=== PATIENT | male | born 1950 | race Caucasian/White ===

== ENCOUNTER 2018-06-25 23:24 | Emergency (ER) | payer OTHER, SELFPAY ==
[2018-06-25 23:44] VITALS: BP 202/99; PULSE 60; RESP 28; TEMP 36.2; O2SAT 95
--- NOTE | 2018-06-25 23:49 | DI.RAD.S_ITS ---
PROCEDURE: XR CHEST 2V INDICATIONS: Shortness of breath TECHNIQUE: 2 views of the chest were acquired. COMPARISON: [facility], , CHEST 1 VIEW, 11/24/2017, 12:35. FINDINGS: Surgical changes and devices: There is a cardiac pacemaker in expected position. Lungs and pleura: Increased pulmonary vascularity suggesting mild CHF. Left basilar opacity may be infiltrate. No pleural effusions or pneumothorax.. Mediastinum: Mediastinal contours are normal. Heart size is mildly increased. Bones and chest wall: No suspicious bony abnormalities. Soft tissues appear unremarkable. IMPRESSION: 1. Mild congestive heart failure. 2. Left base infiltrate may be secondary to superimposed developing pneumonia. Recommend clinical correlation. Dictated by: Eve Shaver M.D. on 06/26/2018 at 8:40 Approved by: Eve Shaver M.D. on 06/26/2018 at 8:41
[2018-06-26 01:50] VITALS: BP 174/92; PULSE 85; RESP 21; O2SAT 95
[2018-06-26 02:49] VITALS: PULSE 60; RESP 20; O2SAT 93
[2018-06-26] MEDS: ALBUTEROL/IPRATROPIUM 3 ML AMPUL INH (02:49)
[2018-06-26] MEDS: methylPREDNISolone 125 MG/2 ML VIAL IV (03:09)
[2018-06-26 03:24] VITALS: BP 166/84; PULSE 60; RESP 16; O2SAT 95
[2018-06-26 03:35] LABS: Lactate (Lactic Acid) 0.7 mmol/L (0.7-2.1)
[2018-06-26 03:39] LABS: Alanine Aminotransferase 56 IU/L (21-72); Albumin 4.4 g/dL (3.5-5.0); Albumin Globulin Ratio 1.3 (1.0-2.8); Alkaline Phosphatase 109 U/L (38-126); Aspartate Aminotransferase 38 IU/L (17-59); BUN Creatinine Ratio 17.5 (6-22); Blood Urea Nitrogen 14 mg/dL (9-20); Calcium 8.4 mg/dL (8.4-10.2); Carbon Dioxide 28 mmol/L (22-32); Chloride 101 mmol/L (98-107); Creatine Kinase 104 U/L (55-170); Estimated Glomerular Filt Rate > 60.0 mL/min (>60); Globulin 3.5 g/dL (1.7-4.1); Glucose 108 mg/dL (80-110); HEMOLYSIS 18 (0-50); Potassium 4.2 mmol/L (3.4-5.1); Sodium 139 mmol/L (137-145); Total Protein 7.9 g/dL (6.3-8.2)
[2018-06-26 03:41] LABS: Add Manual Diff / Slide Review NO; Basophils Percent Auto 0.6 % (0-2); Eosinophils Percent Auto 2.1 % (2-4); Hematocrit 43.1 % (41-53); Hemoglobin 14.1 g/dL (13.5-17.5); Lymphocytes Percent Auto 10.7 % (25-40); Mean Corpuscular HGB Conc 32.6 % (30-36); Mean Corpuscular Hemoglobin 26.7 PG (26-34); Mean Corpuscular Volume 81.7 fL (80-100); Monocytes Percent Auto 8.6 % (3-14); Neutrophils Absolute Auto 6300 /uL (3000-5900); Platelet Count 160 X10^3/uL (150-400); Red Blood Cell Count 5.27 X10^6/uL (4.5-5.9); Red Cell Distribution Width 18.6 % (11.6-14.8); White Blood Cell Count 8.1 X10^3/uL (4.5-11.0)
[2018-06-26 03:51] LABS: Troponin I < 0.012 ng/mL (0.01-0.034)
[2018-06-26 03:54] LABS: CKMB % Relative Index 1.6 % (1.5-5.0); Creatine Kinase MB 1.66 ng/mL (<2.37)
[2018-06-26 03:56] LABS: Procalcitonin < 0.05 ng/mL (<0.5)
[2018-06-26] MEDS: ALBUTEROL HFA PREPACK 1 BOX MISC (04:02)
--- NOTE | 2018-06-26 04:19 | ED_ITS ---
HPI - URI/Sore Throat General Chief Complaint: Upper Respiratory Symptoms Stated Complaint: coughing bad, cant breath well H/A stomach swell Time Seen by Provider: 06/26/18 01:55 Source: patient Mode of arrival: ambulatory Limitations: no limitations History of Present Illness HPI Narrative: Patient is a 68-year-old male with multiple complaints. He is having some the chest pain and shortness of breath ongoing for couple of days. He denies any orthopnea or increasing dyspnea with exertion. Sometimes feels like he can't take a deep breath. Has a productive cough. This is been ongoing for about 4 days. He feels like he has some abdominal distention as well but no vomiting no pain. MD Complaint: cough Onset (ago): day(s) Duration: constant Related Data Home Medications Medication Instructions Recorded Confirmed metoprolol succinate 100 mg PO BID #0 07/13/17 apixaban [Eliquis] 5 mg PO BID #0 07/14/17 [CEFAZOLIN] IV Q8H #0 11/24/17 [MENTHOL LOZENGE] Q2HP PRN #0 11/24/17 acetaminophen 1,000 mg PO TIDP PRN #0 11/24/17 alteplase [Activase] 100 mg IV #0 11/24/17 diltiazem HCl [Cartia XT] 240 mg PO BID #0 11/24/17 hydralazine 25 mg PO TIDCC #0 11/24/17 hydroxyzine pamoate [Vistaril] 25 mg PO Q4HP PRN #0 11/24/17 methocarbamol 750 mg PO Q8HP PRN #0 11/24/17 multivitamin [Multiple Vitamins] 1 tab PO QDAY #0 11/24/17 ondansetron 4 mg SUBLINGUAL Q6HP PRN #0 11/24/17 oxycodone 1 - 1.5 tab PO Q4HP PRN #0 11/24/17 potassium chloride 20 meq PO QDAY #30 11/24/17 rifampin 600 mg PO QDAY #0 11/24/17 sennosides [senna] 2 tab PO HSP PRN #0 11/24/17 tramadol 1 - 2 tab PO Q6HP PRN #0 11/24/17 Previous Rx's Medication Instructions Recorded lisinopril 20 mg PO QDAY #30 tab 10/17/17 levothyroxine 0.088 mg PO QAM #90 tab 10/18/17 doxycycline hyclate 100 mg PO BID #20 cap 06/26/18 prednisone 50 mg PO DAILY #4 tab 06/26/18 Allergies Allergy/AdvReac Type Severity Reaction Status Date / Time vancomycin Allergy Severe BREATHING Verified 06/25/18 23:49 ISSUES apixaban [APIXABAN] Allergy Unknown Verified 06/25/18 23:49 dabigatran etexilate Allergy Unknown Verified 06/25/18 23:49 [DABIGATRAN ETEXILATE] Penicillins Allergy Unknown CHILDHOOD Verified 06/25/18 23:49 rivaroxaban [RIVAROXABAN] Allergy Unknown Verified 06/25/18 23:49 azithromycin [AZITHROMYCIN] AdvReac Intermediate GI and Verified 06/25/18 23:49 myalgia Review of Systems Review of Systems All systems reviewed & are unremarkable except as noted in HPI and below Constitutional Denies chills, Denies fever(s), Denies lethargy and Denies weakness Cardiovascular Denies chest pain, Denies irregular heart rhythm, Denies lightheadedness, Denies palpitations and Denies orthopnea Respiratory Reports as per HPI Gastrointestinal Gastrointestinal: Denies abdominal pain, Denies change in bowel habits, Denies diarrhea, Denies nausea and Denies vomiting Musculoskeletal Denies back pain, Denies muscle weakness, Denies numbness and Denies tingling Integumentary/Breasts Denies pruritus, Denies erythema, Denies rash and Denies wounds Neurologic Denies numbness, Denies tingling and Denies weakness Endocrine Denies palpitations PFSH Medical History Atrial fibrillation (Acute) Hypertension (Acute) Hypothyroid (Acute) Obstructive sleep apnea (Acute) Social History Smoking Status: Current some day smoker Exam Initial Vital Signs Initial Vital Signs: Vital Signs Temperature 97.1 F L 06/25/18 23:44 Pulse Rate 60 06/25/18 23:44 Respiratory Rate 28 H 06/25/18 23:44 Blood Pressure 202/99 H 06/25/18 23:44 Pulse Oximetry 95 06/25/18 23:44 GENERAL: Currently sleeping with his home BiPAP emergency department no acute distress easily arousable and appropriate HEENT: Head atraumatic,EOMI, pupils reactive, face symmetric no JVD, neck is supple CARDIOVASCULAR: Regular rate and rhythm without murmurs, rubs or gallops. RESPIRATORY: Speaks in full sentences no acute respiratory distress wheezing bilaterally ABDOMEN: Soft, nontender. Normoactive bowel sounds all 4 quadrants. No guarding or rebound. EXTREMITIES: Normal range of motion, no clubbing or edema. Neurovascularly intact NEUROLOGICAL: Alert and oriented x4.Normal gait and speech. Cranial nerves II through XII grossly intact. SKIN: Warm, dry, no laceration, no petechiae, no rashes or lesions. Course Orders Ordered: Discontinued Medications Albuterol (Ventolin Hfa Prepack) 1 box MISC SEEINSTR ONE Stop: 06/26/18 04:01 Last Admin: 06/26/18 04:02 Dose: 1 box Albuterol/Ipratropium (Duoneb) 3 ml INH NOW ONE Stop: 06/26/18 02:11 Last Admin: 06/26/18 02:49 Dose: 3 ml Doxycycline Hyclate (Vibramycin) 100 mg PO NOW ONE Stop: 06/26/18 04:57 Last Admin: 06/26/18 05:20 Dose: 100 mg Methylprednisolone (Solu-Medrol 125 Mg Vial) 125 mg IV NOW ONE Stop: 06/26/18 02:11 Last Admin: 06/26/18 03:09 Dose: 125 mg Vital Signs - 8 hr 06/25/18 23:44 06/26/18 01:50 06/26/18 02:49 Temperature 97.1 F L Pulse Rate 60 85 60 Respiratory Rate 28 H 21 20 Blood Pressure 202/99 H Blood Pressure [Left Arm] 174/92 H Pulse Oximetry 95 95 93 06/26/18 03:24 Temperature Pulse Rate 60 Respiratory Rate 16 Blood Pressure Blood Pressure [Left Arm] 166/84 H Pulse Oximetry 95 MDM - URI/Sore Throat Lab Data Attestation: I reviewed the patient's lab results. Result diagrams: 06/26/18 03:05 06/26/18 03:05 Lab Results 06/26/18 06/26/18 06/26/18 Range/Units 03:05 03:05 03:05 WBC 8.1 (4.5-11.0) X10^3/uL RBC 5.27 (4.5-5.9) X10^6/uL Hgb 14.1 (13.5-17.5) g/dL Hct 43.1 (41-53) % MCV 81.7 (80-100) fL MCH 26.7 (26-34) PG MCHC 32.6 (30-36) % RDW 18.6 H (11.6-14.8) % Plt Count 160 (150-400) X10^3/uL Neut % (Auto) 78.0 H (50-75) % Lymph % (Auto) 10.7 L (25-40) % [place] % (Auto) 8.6 (3-14) % Eos % (Auto) 2.1 (2-4) % Baso % (Auto) 0.6 (0-2) % Neut # (Auto) 6300 H (9139-4272) /uL Sodium 139 (137-145) mmol/L Potassium 4.2 (3.4-5.1) mmol/L Chloride 101 (98-107) mmol/L Carbon Dioxide 28 (22-32) mmol/L BUN 14 (9-20) mg/dL Creatinine 0.80 (0.66-1.25) mg/dL Estimated GFR > 60.0 (>60) mL/min BUN/Creatinine Ratio 17.5 (6-22) Glucose 108 (80-110) mg/dL Lactate (0.7-2.1) mmol/L Calcium 8.4 (8.4-10.2) mg/dL Total Bilirubin 1.0 (0.2-1.3) mg/dL AST 38 (17-59) IU/L ALT 56 (21-72) IU/L Alkaline Phosphatase 109 (38-126) U/L Total Creatine Kinase 104 (55-170) U/L CK-MB (CK-2) 1.66 (<2.37) ng/mL CK-MB (CK-2) Rel Index 1.6 (1.5-5.0) % Troponin I < 0.012 (0.01-0.034) ng/mL B-Natriuretic Peptide 169.0 H (<100) Total Protein 7.9 (6.3-8.2) g/dL Albumin 4.4 (3.5-5.0) g/dL Globulin 3.5 (1.7-4.1) g/dL Albumin/Globulin Ratio 1.3 (1.0-2.8) Procalcitonin < 0.05 (<0.5) ng/mL 06/26/18 Range/Units 03:05 WBC (4.5-11.0) X10^3/uL RBC (4.5-5.9) X10^6/uL Hgb (13.5-17.5) g/dL Hct (41-53) % MCV (80-100) fL MCH (26-34) PG MCHC (30-36) % RDW (11.6-14.8) % Plt Count (150-400) X10^3/uL Neut % (Auto) (50-75) % Lymph % (Auto) (25-40) % [place] % (Auto) (3-14) % Eos % (Auto) (2-4) % Baso % (Auto) (0-2) % Neut # (Auto) (1929-3136) /uL Sodium (137-145) mmol/L Potassium (3.4-5.1) mmol/L Chloride (98-107) mmol/L Carbon Dioxide (22-32) mmol/L BUN (9-20) mg/dL Creatinine (0.66-1.25) mg/dL Estimated GFR (>60) mL/min BUN/Creatinine Ratio (6-22) Glucose (80-110) mg/dL Lactate 0.7 (0.7-2.1) mmol/L Calcium (8.4-10.2) mg/dL Total Bilirubin (0.2-1.3) mg/dL AST (17-59) IU/L ALT (21-72) IU/L Alkaline Phosphatase (38-126) U/L Total Creatine Kinase (55-170) U/L CK-MB (CK-2) (<2.37) ng/mL CK-MB (CK-2) Rel Index (1.5-5.0) % Troponin I (0.01-0.034) ng/mL B-Natriuretic Peptide (<100) Total Protein (6.3-8.2) g/dL Albumin (3.5-5.0) g/dL Globulin (1.7-4.1) g/dL Albumin/Globulin Ratio (1.0-2.8) Procalcitonin (<0.5) ng/mL Imaging Data Chest x-ray: Attestation: I personally reviewed and interpreted this imaging study as follows: My impression: Bilateral patchy infiltrate, ICD wires intact ECG Data Attestation: I personally reviewed and interpreted this ECG as follows: Prior ECG tracings: available for review Interpretation: Sinus rhythm rate 60 atrial pacemaker noted no ST changes no T- wave inversions appear interval 240, QTC 259 MDM Narrative Medical decision making narrative: The patient appears non toxic. He improved significantly after albuterol. He has had productive cough possible pneumonia on x-ray. No leukocytosis does not look septic. He overall feels better ready and able to go. Mildly elevated BNP of 169. No prior history of CHF. Discharge Plan Departure Patient Disposition: Home Clinical Impression: Atypical pneumonia Discharge Date/Time: 06/26/18 06:06 Interventions: ED Discharge Assessment Last Done: 06/26/18 06:58 Instructions: Atypical Pneumonia Activity Restrictions/Additional Instructions: *You have been diagnosed with atypical pneumonia *What to do: Rest *Continue to take medications as directed -albuterol 1-2 puffs every 4 hr if needed for shortness of breath or coughing episodes -prednisone 50 mg once a day for 4 days start tomorrow -doxycycline 1 pill twice a day for 10 days *Follow up with your primary care provider in 2-3 days *Return to ER if you should have worsening cough, increasing shortness of breath , worsening chest or any new, worsening or concerning symptoms Prescriptions: New doxycycline hyclate 100 mg capsule 100 mg PO BID Qty: 20 RF: 0 prednisone 50 mg tablet 50 mg PO DAILY Qty: 4 RF: 0 No Action metoprolol succinate 100 MG tablet extended release 24 hr 100 mg PO BID Qty: 0 RF: 0 apixaban [Eliquis] 5 MG tablet 5 mg PO BID Qty: 0 RF: 0 lisinopril 20 MG tablet 20 mg PO QDAY Qty: 30 RF: 11 levothyroxine 88 MCG tablet 0.088 mg PO QAM Qty: 90 RF: 3 potassium chloride 20 MEQ tablet,ER particles/crystals 20 meq PO QDAY Qty: 30 RF: 0 ondansetron 4 MG tablet,disintegrating 4 mg Sublingual Q6HP PRNQty: 0 RF: 0 [CEFAZOLIN] IV Q8H Qty: 0 RF: 0 multivitamin [Multiple Vitamins] 1 EACH tablet 1 tab PO QDAY Qty: 0 RF: 0 rifampin 300 MG capsule 600 mg PO QDAY Qty: 0 RF: 0 sennosides [senna] 8.6 MG tablet 2 tab PO HSP PRNQty: 0 RF: 0 tramadol 50 MG tablet 1 - 2 tab PO Q6HP PRNQty: 0 RF: 0 [MENTHOL LOZENGE] Q2HP PRNQty: 0 RF: 0 hydroxyzine pamoate [Vistaril] 25 MG capsule 25 mg PO Q4HP PRNQty: 0 RF: 0 methocarbamol 750 MG tablet 750 mg PO Q8HP PRNQty: 0 RF: 0 oxycodone 10 MG tablet 1 - 1.5 tab PO Q4HP PRNQty: 0 RF: 0 acetaminophen 500 MG tablet 1,000 mg PO TIDP PRNQty: 0 RF: 0 alteplase [Activase] 100 MG recon soln 100 mg IV Qty: 0 RF: 0 diltiazem HCl [Cartia XT] 240 MG capsule,extended release 24hr 240 mg PO BID Qty: 0 RF: 0 hydralazine 25 MG tablet 25 mg PO TIDCC Qty: 0 RF: 0 Referrals: Gee Boucher MD [Primary Care Provider] -
[2018-06-26] MEDS: DOXYCYCLINE HYCLATE 100 MG TABLET PO (05:20)
[2018-06-26 06:58] VITALS: BP 163/87; PULSE 61; RESP 16; O2SAT 96
== END 2018-06-26 06:06 | disposition home or self-care (01) ==
PROVIDERS: Emergency Provider Emergency Medicine; PCP Internal Medicine Infectious Disease
DX: J18.9 Pneumonia, unspecified organism (principal); R07.89 Other chest pain
CPT/HCPCS: 36415; 36591; 71046; 80053; 82550; 82553; 83605; 83880; 84145; 84484; 85025; 87040; 93005; 94640; 96374; 99283; 99285; J2930

== ENCOUNTER → 2018-11-27 12:31 | Outpatient (CLI) | payer OTHER, MEDICARE, SELFPAY ==
[2018-11-27 14:20] LABS: Alanine Aminotransferase 51 IU/L (21-72); Albumin 4.4 g/dL (3.5-5.0); Albumin Globulin Ratio 1.5 (1.0-2.8); Alkaline Phosphatase 78 U/L (38-126); Aspartate Aminotransferase 33 IU/L (17-59); BUN Creatinine Ratio 21.1 (6-22); Bilirubin Total 1.1 mg/dL (0.2-1.3); Blood Urea Nitrogen 19 mg/dL (9-20); Carbon Dioxide 30 mmol/L (22-32); Chloride 102 mmol/L (98-107); Estimated Glomerular Filt Rate > 60.0 mL/min (>60); Glucose 92 mg/dL (80-110); HEMOLYSIS < 15 (0-50); Potassium 4.3 mmol/L (3.4-5.1); Sodium 140 mmol/L (137-145); Total Protein 7.4 g/dL (6.3-8.2)
== END ==
PROVIDERS: Family Provider Family Medicine; PCP Internal Medicine Infectious Disease; Visit Provider Internal Medicine Cardiovascular Disease
DX: I48.0 Paroxysmal atrial fibrillation (principal)
CPT/HCPCS: 36415; 80053

== ENCOUNTER → 2019-06-01 12:40 | Outpatient (CLI) | payer OTHER, MEDICARE, SELFPAY ==
[2019-06-01 13:21] LABS: Alanine Aminotransferase 41 IU/L (21-72); Albumin 4.5 g/dL (3.5-5.0); Albumin Globulin Ratio 1.4 (1.0-2.8); Alkaline Phosphatase 78 U/L (38-126); Aspartate Aminotransferase 38 IU/L (17-59); BUN Creatinine Ratio 21.1 (6-22); Blood Urea Nitrogen 19 mg/dL (9-20); Calcium 9.2 mg/dL (8.4-10.2); Carbon Dioxide 26 mmol/L (22-32); Chloride 104 mmol/L (98-107); Estimated Glomerular Filt Rate > 60.0 mL/min (>60); Globulin 3.3 g/dL (1.7-4.1); Glucose 123 mg/dL (80-110); HEMOLYSIS < 15 (0-50); Potassium 4.2 mmol/L (3.4-5.1); Sodium 141 mmol/L (137-145); Total Protein 7.8 g/dL (6.3-8.2)
== END ==
PROVIDERS: Family Provider Internal Medicine Infectious Disease; PCP Family Medicine; Visit Provider Internal Medicine Cardiovascular Disease
DX: I49.5 Sick sinus syndrome (principal); I48.0 Paroxysmal atrial fibrillation
CPT/HCPCS: 36415; 80053; 84443

== ENCOUNTER 2019-11-13 01:46 | Observation (INO) | payer OTHER, MEDICARE, SELFPAY ==
[2019-11-13] VITALS (10 sets, daily range): BP systolic 132–199; BP diastolic 97–125; PULSE 78–106; RESP 16–35; TEMP 36.4–36.7; O2SAT 94–99; BMI 40.7
--- NOTE | 2019-11-13 01:59 | DI.RAD.S_ITS ---
PROCEDURE: XR CHEST 1V INDICATIONS: shortness of breath, chest pain TECHNIQUE: One view of the chest was acquired. COMPARISON: [facility], CR, XR CHEST 2V, 06/25/2018, 23:34. FINDINGS: Surgical changes and devices: Left chest wall cardiac device position is unchanged. Lungs and pleura: There is mild pulmonary vascular congestion. Mild pulmonary edema is also seen. Underlying right perihilar infiltrate cannot be excluded. No pleural effusions or pneumothorax. Mediastinum: Mediastinal contours appear normal. Heart size is enlarged. Bones and chest wall: No suspicious bony lesions. Overlying soft tissues appear unremarkable. IMPRESSION: Cardiomegaly and congestion. Cannot rule out small right infrahilar infiltrate. No gross pneumothorax. Dictated by: Tom Duff M.D. on 11/13/2019 at 8:37 Approved by: Tom Duff M.D. on 11/13/2019 at 8:39
[2019-11-13 02:24] LABS: Add Manual Diff / Slide Review NO; Basophils Absolute Auto 100 /uL (0-100); Basophils Percent Auto 0.8 % (0-2); Eosinophils Absolute Auto 200 /uL (0-450); Eosinophils Percent Auto 2.1 % (2-4); Hematocrit 38.9 % (41-53); Hemoglobin 12.4 g/dL (13.5-17.5); INR 1.3 (0.9-1.3); Lymphocytes Absolute Auto 1600 /uL (1100-4500); Lymphocytes Percent Auto 19.5 % (25-40); Mean Corpuscular HGB Conc 31.8 % (30-36); Mean Corpuscular Hemoglobin 26.2 PG (26-34); Mean Corpuscular Volume 82.5 fL (80-100); Monocytes Absolute Auto 600 /uL (0-900); Monocytes Percent Auto 6.9 % (3-14); Neutrophils Absolute Auto 5600 /uL (1500-7000); Neutrophils Percent Auto 70.7 % (50-75); Platelet Count 192 X10^3/uL (150-400); Prothrombin Time 14.4 SECONDS (10.1-12.7); Red Blood Cell Count 4.72 X10^6/uL (4.5-5.9); Red Cell Distribution Width 16.1 % (11.6-14.8)
--- NOTE | 2019-11-13 02:26 | ED.CHESTPAIN ---
HPI - Chest Pain General Chief Complaint: Chest Pain Stated Complaint: sob/chest pain and tightness Time Seen by Provider: 11/13/19 02:23 Source: patient and family Mode of arrival: Family Vehicle Limitations: no limitations History of Present Illness HPI narrative: This is a 69-year-old male comes emergency department with complaint of chest pain and shortness of breath. Patient states he received a call at 9:30pm this evening that was very agitating an upsetting to him. Patient states that he developed chest pressure, on the left side he states he radiate a little bit toward his neck. He felt short of breath which he states he is always little bit short of breath but was increased. He had a little bit headache, states his blood pressure is elevated this evening. He feels dizzy when he bends over although he states he always feels dizzy when he bends over. He denies any fevers, no chills, no cold cough or congestion. He has been mildly nauseated but no vomiting. No issues with bowel movements or urination, he denies any new swelling in his extremities. He has known hypertension, his atrial fibrillation which he states is paroxysmal. No history of IA, no cardiac stents, he had his pacemaker in place. He states he had an ablation and has had multiple cardioversions in the past. States he had a heart catheterization when he had his ablation which is probably 5+ years ago. He does use a BiPAP at night. Patient states that when he gets anxious he will often feel this way but tonight's episode was a little bit more intense and has not resolved. He has had multiple orthopedic surgeries. Related Data Home Medications Medication Instructions Recorded Confirmed Eliquis 5 mg PO BID #0 07/14/17 11/13/19 multivitamin [Multiple Vitamins] 1 tab PO QDAY #0 11/24/17 11/13/19 potassium chloride 20 meq PO QDAY #30 11/24/17 11/13/19 Respironics Dreamstation BIPAP #1 ea 01/29/19 10/24/19 Previous Rx's Medication Instructions Recorded hydroxyzine pamoate 50 mg capsule 50 mg PO BID PRN #60 cap 10/24/19 propranolol 20 mg tablet 20 mg PO BID #60 tab 10/24/19 Allergies Allergy/AdvReac Type Severity Reaction Status Date / Time vancomycin Allergy Severe BREATHING Verified 10/24/19 13:36 ISSUES apixaban [APIXABAN] Allergy Unknown Verified 10/24/19 13:36 dabigatran etexilate Allergy Unknown Verified 10/24/19 13:36 [DABIGATRAN ETEXILATE] Penicillins Allergy Unknown CHILDHOOD Verified 10/24/19 13:36 rivaroxaban [RIVAROXABAN] Allergy Unknown Verified 10/24/19 13:36 azithromycin [AZITHROMYCIN] AdvReac Intermediate GI and Verified 10/24/19 13:36 myalgia Review of Systems Review of Systems ROS Unobtainable: All systems reviewed & are unremarkable except as noted in HPI and below Patient History Medical History (Updated 11/13/19 @ 05:24 by PAMELA Veras) Atrial fibrillation (Chronic) Atrial fibrillation (Acute) Hypertension (Acute) Hypothyroid (Acute) Obstructive sleep apnea (Acute) Pacemaker (Chronic) Sleep apnea (Acute) Surgical History (Updated 11/13/19 @ 05:25 by PAMELA Veras) History of permanent cardiac pacemaker placement (Acute) History of right knee joint replacement (Acute) Family History (Updated 11/13/19 @ 05:26 by PAMELA Veras) Father Abdominal aortic aneurysm Mother Old age Social History household members: spouse Smoking Status: Current some day smoker alcohol intake: current Smoking Status: Current some day smoker alcohol intake frequency: 0-2 drinks per day Substance Use Type: does not use Exam Narrative Exam Narrative: GENERAL: Alert and oriented x three, obese male in mild distress. Patient does appear slightly anxious. No diaphoresis. HEENT: Head normocephalic, atraumatic, EOMI, pupils reactive, face symmetric, moist mucous membranes NECK: Supple, full range of motion CARDIOVASCULAR: Irregularly irregular rate and rhythm without murmurs, rubs or gallops. RESPIRATORY: Breath sounds equal bilaterally, no wheezes rales or rhonchi. No crackles. No tachypnea accessory muscle use. ABDOMEN: Soft, nontender. Normoactive bowel sounds all 4 quadrants. No guarding or rebound, rigidity, no mass : No CVA tenderness EXTREMITIES: Normal range of motion, trace edema bilateral lower extremities. Neurovascularly intact NEUROLOGICAL: Cranial nerves II through XII grossly intact. Moving all extremities SKIN: Warm, dry, no petechiae, no rashes or lesions. Initial Vital Signs Initial Vital Signs: Vital Signs Temperature 97.7 F 11/13/19 01:50 Pulse Rate 106 H 11/13/19 01:50 Respiratory Rate 23 11/13/19 01:50 Blood Pressure 132/105 H 11/13/19 01:50 Pulse Oximetry 99 11/13/19 01:50 Scores HEART Score Heart Score history: Moderately Suspicious Heart Score EKG: Non-Specific repolarization disturbance Heart Score Age: > or = 65 years old Heart Score risk factors: 1-2 risk factors Heart Score troponin: < or = to normal limit Heart Score Total: 5 Course Orders Ordered: ED Orders 11/13/19 EKG-12 Lead Stat 11/13/19 01:59 XR chest 1V Stat 11/13/19 02:11 Complete Blood Count AUTO DIFF Stat Comprehensive Metabolic Panel Stat Lipase Stat Magnesium Stat NT-proBNP (BNP-Adult 18+) Stat Partial Thromboplastin Time Stat Procalcitonin Stat Prothrombin Time INR Stat Troponin & CK Cardiac Panel Stat 11/13/19 04:10 Troponin & CK Cardiac Panel Stat Acetaminophen (Tylenol) 650 mg PO Q6HR PRN PRN Reason: Fever/Mild Pain (1-3) Apixaban (Eliquis) 5 mg PO BID [facility] Chlorthalidone (Hygroton) 25 mg PO DAILY [facility] Hydroxyzine Pamoate (Vistaril) 50 mg PO BID PRN PRN Reason: anxiety Nitroglycerin (Nitrostat) 0.4 mg SL [id number] PRN PRN Reason: Chest Pain Ondansetron HCl (Zofran) 4 mg IV Q8HR PRN PRN Reason: Nausea And Vomiting Propranolol HCl (Inderal) 20 mg PO BID NEERAJ Discontinued Medications Furosemide (Lasix) 40 mg IV NOW ONE Stop: 11/13/19 03:38 Last Admin: 11/13/19 03:55 Dose: 40 mg Documented by: NARENDRA Nitroglycerin (Nitrostat) 0.4 mg SL [id number] PRN PRN Reason: Chest Pain Last Admin: 11/13/19 03:13 Dose: 0.4 mg Documented by: Admin: 11/13/19 02:59 Dose: 0.4 mg Documented by: BASHIR Vital Signs Vital signs: Vital Signs - 8 hr 11/13/19 01:50 11/13/19 02:59 11/13/19 03:10 Temperature 97.7 F Pulse Rate 106 H 96 H Respiratory Rate 23 35 H Blood Pressure 132/105 H 199/125 H Blood Pressure [Left Arm] 184/113 H Pulse Oximetry 99 95 11/13/19 03:13 11/13/19 03:58 Temperature Pulse Rate 79 Respiratory Rate 20 Blood Pressure 173/107 H Blood Pressure [Left Arm] 181/106 H Pulse Oximetry MDM - Chest Pain Lab Data Attestation: I reviewed the patient's lab results. Result diagrams: 11/13/19 02:11 11/13/19 02:11 Labs: Lab Results 11/13/19 11/13/19 11/13/19 Range/Units 02:11 02:11 02:11 WBC 8.0 (4.5-11.0) X10^3/uL RBC 4.72 (4.5-5.9) X10^6/uL Hgb 12.4 L (13.5-17.5) g/dL Hct 38.9 L (41-53) % MCV 82.5 (80-100) fL MCH 26.2 (26-34) PG MCHC 31.8 (30-36) % RDW 16.1 H (11.6-14.8) % Plt Count 192 (150-400) X10^3/uL Neut % (Auto) 70.7 (50-75) % Lymph % (Auto) 19.5 L (25-40) % [place] % (Auto) 6.9 (3-14) % Eos % (Auto) 2.1 (2-4) % Baso % (Auto) 0.8 (0-2) % Neut # (Auto) 5600 (6933-8647) /uL Lymph # (Auto) 1600 (4646-3290) /uL [place] # (Auto) 600 (0-900) /uL Eos # (Auto) 200 (0-450) /uL Baso # (Auto) 100 (0-100) /uL PT 14.4 H (10.1-12.7) SECONDS INR 1.3 (0.9-1.3) APTT 35 (26.4-36.2) SECONDS Sodium (137-145) mmol/L Potassium (3.4-5.1) mmol/L Chloride (98-107) mmol/L Carbon Dioxide (22-32) mmol/L BUN (9-20) mg/dL Creatinine (0.66-1.25) mg/dL Estimated GFR (>60) mL/min BUN/Creatinine Ratio (6-22) Glucose (80-110) mg/dL Calcium (8.4-10.2) mg/dL Magnesium 2.1 (1.6-2.3) mg/dL Total Bilirubin (0.2-1.3) mg/dL AST (17-59) IU/L ALT (<50) IU/L Alkaline Phosphatase (38-126) U/L Total Creatine Kinase 55 (55-170) U/L CK-MB (CK-2) TNP CK-MB (CK-2) Rel Index TNP Troponin I 0.013 (0.01-0.034) ng/mL NT-Pro-B Natriuret Pep (<125) pg/mL Total Protein (6.3-8.2) g/dL Albumin (3.5-5.0) g/dL Globulin (1.7-4.1) g/dL Albumin/Globulin Ratio (1.0-2.8) Lipase (23-300) U/L Procalcitonin (<0.5) ng/mL 11/13/19 11/13/19 11/13/19 Range/Units 02:11 02:11 02:11 WBC (4.5-11.0) X10^3/uL RBC (4.5-5.9) X10^6/uL Hgb (13.5-17.5) g/dL Hct (41-53) % MCV (80-100) fL MCH (26-34) PG MCHC (30-36) % RDW (11.6-14.8) % Plt Count (150-400) X10^3/uL Neut % (Auto) (50-75) % Lymph % (Auto) (25-40) % [place] % (Auto) (3-14) % Eos % (Auto) (2-4) % Baso % (Auto) (0-2) % Neut # (Auto) (4620-1591) /uL Lymph # (Auto) (1418-4380) /uL [place] # (Auto) (0-900) /uL Eos # (Auto) (0-450) /uL Baso # (Auto) (0-100) /uL PT (10.1-12.7) SECONDS INR (0.9-1.3) APTT (26.4-36.2) SECONDS Sodium 140 (137-145) mmol/L Potassium 4.1 (3.4-5.1) mmol/L Chloride 105 (98-107) mmol/L Carbon Dioxide 28 (22-32) mmol/L BUN 24 H (9-20) mg/dL Creatinine 1.07 (0.66-1.25) mg/dL Estimated GFR > 60.0 (>60) mL/min BUN/Creatinine Ratio 22.4 H (6-22) Glucose 128 H (80-110) mg/dL Calcium 8.5 (8.4-10.2) mg/dL Magnesium (1.6-2.3) mg/dL Total Bilirubin 0.6 (0.2-1.3) mg/dL AST 32 (17-59) IU/L ALT 25 (<50) IU/L Alkaline Phosphatase 80 (38-126) U/L Total Creatine Kinase (55-170) U/L CK-MB (CK-2) CK-MB (CK-2) Rel Index Troponin I (0.01-0.034) ng/mL NT-Pro-B Natriuret Pep 572 H (<125) pg/mL Total Protein 7.4 (6.3-8.2) g/dL Albumin 4.1 (3.5-5.0) g/dL Globulin 3.3 (1.7-4.1) g/dL Albumin/Globulin Ratio 1.2 (1.0-2.8) Lipase 130 (23-300) U/L Procalcitonin < 0.05 (<0.5) ng/mL Imaging Data Chest x-ray: Attestation: I personally reviewed and interpreted this imaging study as follows: My Impression: Patient appears to have similar chest x-ray as 06/25/2028 patient does have some increased pulmonary vascularity. Left lung base is difficult to visualize but this may be secondary to cardiomegaly which is present. Pacemaker does appear to be present. ECG Data Attestation: I personally reviewed and interpreted this ECG as follows: Prior ECG tracings: available for review Interpretation: AFib with a rate 82 QRS of 114 and QTC of 447. Patient has a little bit elevation V1 V2 which appears on prior EKG from 06/26/2018. Patient appears have incomplete right bundle-branch block with nonspecific change otherwise. [facility] Narrative Medical decision making narrative: 69-year-old male comes in hypertensive with chest pain and shortness of breath that was brought on by a stressful phone conversation. Patient does not have any acute EKG changes noted, initial troponin is negative inpatient BNP is elevated with possible pulmonary edema on chest x-ray. Discussed with patient he was initially reluctant to even have a 2 hour troponin repeated but he does have multiple risk factors and discussed I would like to keep cardiac observation. His chest pain improved with 2 nitro sublingual as did his blood pressure, although still elevated. I spoke with MARTY Blake and she would like me to discuss with foundation relations manager cardiology, patient does follow with Dr. Ornelas regularly. Spoke with Dr. Robbins, she recommends serial troponins, starting chlorthalidone 25 mg daily and watch patient's blood pressure. She suspects this is more from hypertension. She does not feel strongly at this time the patient needs a stress test or further intervention unless there are issues with his troponin or hypertension. Re-contacted MARTY Blake and updated her on Dr. Robbins is recommendations. Repeat troponin was obtained at the 2 hour kiera and is still negative and patient continues to remain asymptomatic. Discharge Plan Departure Patient Disposition: Admitted as Observation Clinical Impression: Hypertensive urgency Chest pain Qualifiers: Chest pain type: unspecified Qualified Code(s): R07.9 - Chest pain, unspecified Discharge Date/Time: 11/13/19 04:50 Admit Date/Time: 11/13/19 04:02 Admit Provider: Camille Blake
[2019-11-13 02:27] LABS: Creatine Kinase 55 U/L (55-170); Magnesium 2.1 mg/dL (1.6-2.3); PTT Partial Thromboplastin Tim 35 SECONDS (26.4-36.2)
[2019-11-13 02:39] LABS: Troponin I 0.013 ng/mL (0.01-0.034)
[2019-11-13 02:44] LABS: Alanine Aminotransferase 25 IU/L (<50); Albumin 4.1 g/dL (3.5-5.0); Albumin Globulin Ratio 1.2 (1.0-2.8); Alkaline Phosphatase 80 U/L (38-126); Aspartate Aminotransferase 32 IU/L (17-59); BUN Creatinine Ratio 22.4 (6-22); Bilirubin Total 0.6 mg/dL (0.2-1.3); Blood Urea Nitrogen 24 mg/dL (9-20); Calcium 8.5 mg/dL (8.4-10.2); Carbon Dioxide 28 mmol/L (22-32); Chloride 105 mmol/L (98-107); Estimated Glomerular Filt Rate > 60.0 mL/min (>60); Globulin 3.3 g/dL (1.7-4.1); Glucose 128 mg/dL (80-110); HEMOLYSIS 17 (0-50); Lipase 130 U/L (23-300); Potassium 4.1 mmol/L (3.4-5.1); Sodium 140 mmol/L (137-145); Total Protein 7.4 g/dL (6.3-8.2)
[2019-11-13 02:49] LABS: NT-proBNP (BNP-Adult 18+) 572 pg/mL (<125)
[2019-11-13 02:59] LABS: Procalcitonin < 0.05 ng/mL (<0.5)
[2019-11-13] MEDS: NITROGLYCERIN 0.4 MG SL TAB SL ×2 (02:59→03:13)
[2019-11-13] MEDS: FUROSEMIDE 40 MG/4 ML VIAL IV (03:55)
[2019-11-13 04:33] LABS: Cholesterol 193 mg/dL (140-199); Creatine Kinase 56 U/L (55-170); HDL Cholesterol 45 mg/dL (40-60); LDL Cholesterol Calculated 122 mg/dL (<100); Triglycerides 131 mg/dL (35-150)
[2019-11-13 04:45] LABS: Troponin I 0.015 ng/mL (0.01-0.034)
--- NOTE | 2019-11-13 05:18 | PM.HP.1 ---
History of Present Illness History of Present Illness Date Patient Seen: 11/13/19 Time Patient Seen: 04:30 Chief complaint: sob/chest pain and tightness Narrative: Reed Reid is a 69 y.o. male with a history of permanent atrial fibrillation and currently with a pacemaker, hypertension and obstructive sleep apnea, who developed chest pain after having a stressful conversation with a family member. He stated that he had a ?anxiety attack? and then developed chest pain which occurred off and on until he was seen in the emergency room and administered nitroglycerin. He also stated he had nausea and vomiting but denies fever sweats or chills, has had chronic shortness of breath for the past year, denies abdominal pain, dysuria, diarrhea, or constipation. He has a pacemaker and has had multiple ablations prior to the pacemaker placement. He sees Dr. Ornelas at [facility] cardiology. In the emergency department they did consult with on-call flat sorting machine clerk who recommended starting the patient on chlorthalidone and trending his troponins of which the 1st 2 have been normal. They did not recommend having him undergo a stress test, but did want a see him in follow-up outpatient.. Patient History Medical History (Updated 11/13/19 @ 05:24 by PAMELA Veras) Atrial fibrillation (Chronic) Atrial fibrillation (Acute) Hypertension (Acute) Hypothyroid (Acute) Obstructive sleep apnea (Acute) Pacemaker (Chronic) Sleep apnea (Acute) Surgical History (Updated 11/13/19 @ 05:25 by PAMELA Veras) History of permanent cardiac pacemaker placement (Acute) History of right knee joint replacement (Acute) Family & Social History Family History (Updated 11/13/19 @ 05:26 by PAMELA Veras) Father Abdominal aortic aneurysm Mother Old age Safety & Behavioral: Feels Safe in Current Yes Environment Tobacco & Substance use: Smoking Status Current some day smoker 1 cigarette daily alcohol intake frequency 0-2 drinks per day Substance Use Type does not use Meds Home Medications and Allergies Home Medications Medication Instructions Recorded Confirmed Type Eliquis 5 mg PO BID #0 07/14/17 11/13/19 History multivitamin [Multiple Vitamins] 1 tab PO QDAY #0 11/24/17 11/13/19 History potassium chloride 20 meq PO QDAY #30 11/24/17 11/13/19 History Respironics Dreamstation BIPAP #1 ea 01/29/19 10/24/19 History hydroxyzine pamoate 50 mg capsule 50 mg PO BID PRN #60 cap 10/24/19 11/13/19 Rx propranolol 20 mg tablet 20 mg PO BID #60 tab 10/24/19 11/13/19 Rx Allergies Allergy/AdvReac Type Severity Reaction Status Date / Time vancomycin Allergy Severe BREATHING Verified 10/24/19 13:36 ISSUES apixaban [APIXABAN] Allergy Unknown Verified 10/24/19 13:36 dabigatran etexilate Allergy Unknown Verified 10/24/19 13:36 [DABIGATRAN ETEXILATE] Penicillins Allergy Unknown CHILDHOOD Verified 10/24/19 13:36 rivaroxaban [RIVAROXABAN] Allergy Unknown Verified 10/24/19 13:36 azithromycin [AZITHROMYCIN] AdvReac Intermediate GI and Verified 10/24/19 13:36 myalgia Review of Systems Review of Systems ROS: Yes All systems reviewed with the patient and are negative except as otherwise documented Exam Vital Signs (past 8 hours): - 11/13/19 01:50 11/13/19 02:59 11/13/19 03:10 Temperature 97.7 F Pulse Rate 106 H 96 H Respiratory Rate 23 35 H Blood Pressure 132/105 H 199/125 H Blood Pressure [Left Arm] 184/113 H Pulse Oximetry 99 95 11/13/19 03:13 11/13/19 03:58 Temperature Pulse Rate 79 Respiratory Rate 20 Blood Pressure 173/107 H Blood Pressure [Left Arm] 181/106 H Pulse Oximetry Oxygen Delivery Method Room Air Narrative Exam Narrative: General: Alert oriented morbidly obese 69-year-old male appears mildly uncomfortable HEENT: Head is normocephalic atraumatic, oral and nasal mucosa is pink and moist Eyes: No scleral icterus, conjunctiva is clear Neck: neck is supple Respirations: Lung sounds are clear to auscultation bilaterally no wheezes or rhonchi CV: Distant heart sounds no murmurs or rubs, regular rate and rhythm Abdomen: Obese soft and nontender Skin: Pigmented lower extremities Neuro: Alert and oriented x4 with no focal deficits, speech is clear Extremities: Patient is ambulatory Psych: Normal mood and affect Objective Labs Result Diagrams: 11/13/19 02:11 11/13/19 02:11 Labs: Laboratory Results - last 24 hr 11/13/19 11/13/19 11/13/19 02:11 02:11 02:11 WBC 8.0 RBC 4.72 Hgb 12.4 L Hct 38.9 L MCV 82.5 MCH 26.2 MCHC 31.8 RDW 16.1 H Plt Count 192 Neut % (Auto) 70.7 Lymph % (Auto) 19.5 L [place] % (Auto) 6.9 Eos % (Auto) 2.1 Baso % (Auto) 0.8 Neut # (Auto) 5600 Lymph # (Auto) 1600 [place] # (Auto) 600 Eos # (Auto) 200 Baso # (Auto) 100 PT 14.4 H INR 1.3 APTT 35 Sodium Potassium Chloride Carbon Dioxide BUN Creatinine Estimated GFR BUN/Creatinine Ratio Glucose Calcium Magnesium 2.1 Total Bilirubin AST ALT Alkaline Phosphatase Total Creatine Kinase 55 CK-MB (CK-2) TNP CK-MB (CK-2) Rel Index TNP Troponin I 0.013 NT-Pro-B Natriuret Pep Total Protein Albumin Globulin Albumin/Globulin Ratio Triglycerides Cholesterol LDL Cholesterol, Calc HDL Cholesterol Lipase Procalcitonin 11/13/19 11/13/19 11/13/19 02:11 02:11 02:11 WBC RBC Hgb Hct MCV MCH MCHC RDW Plt Count Neut % (Auto) Lymph % (Auto) [place] % (Auto) Eos % (Auto) Baso % (Auto) Neut # (Auto) Lymph # (Auto) [place] # (Auto) Eos # (Auto) Baso # (Auto) PT INR APTT Sodium 140 Potassium 4.1 Chloride 105 Carbon Dioxide 28 BUN 24 H Creatinine 1.07 Estimated GFR > 60.0 BUN/Creatinine Ratio 22.4 H Glucose 128 H Calcium 8.5 Magnesium Total Bilirubin 0.6 AST 32 ALT 25 Alkaline Phosphatase 80 Total Creatine Kinase CK-MB (CK-2) CK-MB (CK-2) Rel Index Troponin I NT-Pro-B Natriuret Pep 572 H Total Protein 7.4 Albumin 4.1 Globulin 3.3 Albumin/Globulin Ratio 1.2 Triglycerides Cholesterol LDL Cholesterol, Calc HDL Cholesterol Lipase 130 Procalcitonin < 0.05 11/13/19 11/13/19 04:10 04:10 WBC RBC Hgb Hct MCV MCH MCHC RDW Plt Count Neut % (Auto) Lymph % (Auto) [place] % (Auto) Eos % (Auto) Baso % (Auto) Neut # (Auto) Lymph # (Auto) [place] # (Auto) Eos # (Auto) Baso # (Auto) PT INR APTT Sodium Potassium Chloride Carbon Dioxide BUN Creatinine Estimated GFR BUN/Creatinine Ratio Glucose Calcium Magnesium Total Bilirubin AST ALT Alkaline Phosphatase Total Creatine Kinase 56 CK-MB (CK-2) TNP CK-MB (CK-2) Rel Index TNP Troponin I 0.015 NT-Pro-B Natriuret Pep Total Protein Albumin Globulin Albumin/Globulin Ratio Triglycerides 131 Cholesterol 193 LDL Cholesterol, Calc 122 H HDL Cholesterol 45 Lipase Procalcitonin Assessment & Plan Assessment & Plan narrative: Ochoa Reid will be placed into observation and initiated on a new blood pressure medication recommended by Cardiology. 1. Chest pain, likely secondary to stress and hypertensive urgency: acute, present on admission - CHADS Vasc score: 3 - patient was given Lasix in the ED and his blood pressure dropped down to 166/over 109 - patient will be initiated on chlorthalidone 25 mg daily in the morning - patient will continue home dose of propanolol 20 mg p.o. b.i.d. - 1st 2 troponins were negative, 3rd 6 hour troponin will be at 10:00 a.m. - I have requested Cardiology to consult with the patient in the morning 2. Atrial fibrillation with a pacemaker, chronic, stable, present on admission - patient will continue home dose of apixaban 5 mg p.o. b.i.d. 3. Anxiety, chronic, present on admission - patient takes hydroxyzine 50 mg p.o. b.i.d. as needed for anxiety Patient is placed into observation as his stay is not likely to exceed 2 midnights. FEN: Normal saline lock, low sodium diet, BMP 11/13 am if still present VTE: Bilateral SCDs, continue patient's anticoagulation on apixaban Dispo: Probable discharge to home Code status: Full code Scores CHADS-VASc Congestive heart failure: no Hypertension: yes Age 75 years or older: no Diabetes mellitus: no Stroke, TIA, or TE: no Vascular disease: yes Age 65 to 74 years: yes Sex category (female): Male CHADS-VASc Score: 3 Quality VTE Deep Vein Thrombosis/Pulmonary Embolism Present on Admission: No
--- NOTE | 2019-11-13 06:18 | PC.NURSE ---
Admitted to room 222, observation for C/O CP. Pain level upon admit now 1-2 per pain scale. Very dyspneic with exertion when he was ambulating to the BR & back to bed. Instructed to used urinal & stand @ bedside, using CPAP from home. RA sat. 95-97% encouraged to call RN if he's having any pain. Call light within reached & enc, not to get OOB without any assistance. Reported occasionally I get dizzy . Bed alarm activated, will cont. POC & monitor.
[2019-11-13] MEDS: ACETAMINOPHEN 325 MG TABLET 650 MG PO (07:23)
--- NOTE | 2019-11-13 07:25 | PC.NURSE ---
C/O MANRIQUE 650 mg. PO Tylenol admin.
[2019-11-13] MEDS: APIXABAN 5 MG TABLET PO (08:40)
[2019-11-13] MEDS: PROPRANOLOL 10 MG TABLET 20 MG PO (08:40)
[2019-11-13] MEDS: CHLORTHALIDONE 25 MG TABLET PO (08:40)
--- NOTE | 2019-11-13 09:19 | CM.DANOTE ---
DCP Assessment: EMR reviewed: Patient is a 69 yr old male who was admitted for Hypertensive emergency under OBS status. Patients PCP is Dr Masters. CM/RN met with patient at the bedside and explained role. Patient was alert and oriented x3 at time of CM visit. Patient currently lives with his Ely in a single level home. Patient states he is Independent with all ADLs and Drives at baseline. Patient owns a cane but states he does not it. Patient states his breathing is back to what it usually is. when asked about his chest pain stated he is feeling better but still has a little pressure. patient has a consult with cardiology today pending I: [employer] and medicare Plan: D/C home with his Ely when medically stable. No identified D/C planning needs noted at this time. Cm department will follow to assist with any new D/C planning needs that may arise. Thi Stanford RN Cardiac Enzymes 11/13/19 11/13/19 11/13/19 Range/Units 02:11 02:11 04:10 AST 32 (17-59) IU/L CK-MB (CK-2) TNP TNP Troponin I 0.013 0.015 (0.01-0.034) ng/mL Coagulation 11/13/19 Range/Units 02:11 PT 14.4 H (10.1-12.7) SECONDS APTT 35 (26.4-36.2) SECONDS Lipids 11/13/19 Range/Units 04:10 Triglycerides 131 (35-150) mg/dL Cholesterol 193 (140-199) mg/dL HDL Cholesterol 45 (40-60) mg/dL CBC 11/13/19 Range/Units 02:11 WBC 8.0 (4.5-11.0) X10^3/uL RBC 4.72 (4.5-5.9) X10^6/uL Hgb 12.4 L (13.5-17.5) g/dL Hct 38.9 L (41-53) % Plt Count 192 (150-400) X10^3/uL Neut # (Auto) 5600 (3373-8099) /uL Lymph # (Auto) 1600 (2787-1281) /uL [place] # (Auto) 600 (0-900) /uL Eos # (Auto) 200 (0-450) /uL Baso # (Auto) 100 (0-100) /uL Comprehensive Metabolic Panel 11/13/19 Range/Units 02:11 Sodium 140 (137-145) mmol/L Potassium 4.1 (3.4-5.1) mmol/L Chloride 105 (98-107) mmol/L Carbon Dioxide 28 (22-32) mmol/L BUN 24 H (9-20) mg/dL Creatinine 1.07 (0.66-1.25) mg/dL Glucose 128 H (80-110) mg/dL Calcium 8.5 (8.4-10.2) mg/dL AST 32 (17-59) IU/L ALT 25 (<50) IU/L Alkaline Phosphatase 80 (38-126) U/L Total Protein 7.4 (6.3-8.2) g/dL Albumin 4.1 (3.5-5.0) g/dL Intake and Output 11/12/19 11/13/19 11/13/19 23:59 07:59 15:59 Intake Total 150 / 150 Output Total 625 / 625 Balance -475 / -475 Intake: Oral 150 / 150 Output: Urine 625 / 625 Other: # Unmeasured Voids 1 1 Weight 121.5 kg Patient Weight 11/13/19 23:59 Weight 121.5 kg Discharge Planning/Care Management CM Discharge Assessment Start: 11/13/19 09:18 Freq: Status: Active Protocol: Document 11/13/19 09:18 HS (Rec: 11/13/19 09:19 [id number]) Discharge Planning Assessment Assigned [employer] Operator Thi Stanford RN DPOA/Assigned Designee Name Ely Reid (spouse) Contact Information [phone] Advance Directives? Yes Advance Directives on File Yes: [facility] Medical History Provided By Patient,Medical Record Has Patient been admitted in last 30 No days? Prior Living Arrangements House Household Members spouse Type of transporation used prior to Drives own vehicle admit Willing to Return to Facility? No Independent with ADL's Yes Is patient alert and oriented? Yes Caregiver for Another No DME Already Rented / Owned Cane Comment has it at home but doesnt use it Barriers to Discharge No Discharge Plan Home Referrals Initiated None needed Whiteboard Updated in Patient Room with Yes name and ext. # of [employer] Operator Review Status In Process Next Review Type Continued Stay Review
[2019-11-13 10:52] LABS: Troponin I 0.012 ng/mL (0.01-0.034)
--- NOTE | 2019-11-13 11:48 | PC.NURSE ---
Assess- Patient denies chest pain this shift thus far. He does state if he bends over his chest pain continues. aware of this and states to get an EKG if chest pain does get severe. Patient may be discharged home late today if his troponins are wnl.
--- NOTE | 2019-11-13 11:56 | P.DS_ITS ---
History of Present Illness History of Present Illness Chief complaint: sob/chest pain and tightness Narrative: Reed Reid is a 69 y.o. male with a history of permanent atrial fibrillation and currently with a pacemaker, hypertension and obstructive sleep apnea, who developed chest pain after having a stressful conversation with a family member. He stated that he had a ?anxiety attack? and then developed chest pain which occurred off and on until he was seen in the emergency room and administered nitroglycerin. He also stated he had nausea and vomiting but denies fever sweats or chills, has had chronic shortness of breath for the past year, denies abdominal pain, dysuria, diarrhea, or constipation. He has a pacemaker and has had multiple ablations prior to the pacemaker placement. He sees Dr. Ornelas at [facility] cardiology. In the emergency department they did consult with on-call room attendant who recommended starting the patient on chlorthalidone and trending his troponins of which the 1st 2 have been normal. They did not recommend having him undergo a stress test, but did want a see him in follow-up outpatient.. Discharge Providers Provider Date of admission: 11/13/19 04:02 Discharge Date: 11/13/19 Primary care physician: Chintan Masters MD Consults: 11/13/19 04:08 Consult to Cardiology Routine Comment: Consulting Provider: Lianna Robbins Reason for consultation: chest pain hypertensive urgency Has provider been notified: Yes Discharge provider: Stephane Mckee MD Summary Hospital Course Discharge Diagnosis: 1. Acute chest pain 2. Severe hypertension 3. Acute anxiety 4. Chronic atrial fibrillator 5. Headache due to nitroglycerin Hospital Course: Patient presented with complaints of acute anxiety and chest pain. EKG without ischemic changes. He had serial negative troponin x3. The chest pain has been constant and not affected by exertion. Patient is low risk for discharge to follow-up with his room attendant Dr. Ornelas. We did note persistently elevated moderate to severe hypertension. Patient tense to play around with his medications and recent had reduced his propranolol. He has been on various antihypertensives in the past and prone to side effects. We started him on chlorthalidone 25 mg daily. Advised him to take other medications as has been directed. He is on potassium replacement but advised to have a lecture lyandrew rechecked in 1-2 weeks after starting on diuretic therapy. He did developed moderate to severe headache due to nitroglycerin which was treated with Tylenol and oxycodone. Status at Discharge Cognitive/behavioral status at discharge: oriented Functional status at discharge: independent ambulation Overall status at discharge: patient is back to baseline Time Spent with Patient Time spent: Less than 30 minutes Exam Vital Signs (past 8 hours): - 11/13/19 03:58 11/13/19 05:03 11/13/19 05:24 Temperature 97.5 F L 97.5 F L Pulse Rate 79 84 84 Respiratory Rate 20 22 22 Blood Pressure 166/109 H Blood Pressure [Left Arm] 181/106 H Pulse Oximetry 95 97 11/13/19 08:00 Temperature 98.1 F Pulse Rate 84 Respiratory Rate 16 Blood Pressure 169/97 H Blood Pressure [Left Arm] Pulse Oximetry 95 Oxygen Delivery Method Room Air Oxygen Flow Rate 0 Objective Labs Result Diagrams: 11/13/19 02:11 11/13/19 02:11 Labs: Laboratory Results - last 24 hr 11/13/19 11/13/19 11/13/19 02:11 02:11 02:11 WBC 8.0 RBC 4.72 Hgb 12.4 L Hct 38.9 L MCV 82.5 MCH 26.2 MCHC 31.8 RDW 16.1 H Plt Count 192 Neut % (Auto) 70.7 Lymph % (Auto) 19.5 L [place] % (Auto) 6.9 Eos % (Auto) 2.1 Baso % (Auto) 0.8 Neut # (Auto) 5600 Lymph # (Auto) 1600 [place] # (Auto) 600 Eos # (Auto) 200 Baso # (Auto) 100 PT 14.4 H INR 1.3 APTT 35 Sodium Potassium Chloride Carbon Dioxide BUN Creatinine Estimated GFR BUN/Creatinine Ratio Glucose Calcium Magnesium 2.1 Total Bilirubin AST ALT Alkaline Phosphatase Total Creatine Kinase 55 CK-MB (CK-2) TNP CK-MB (CK-2) Rel Index TNP Troponin I 0.013 NT-Pro-B Natriuret Pep Total Protein Albumin Globulin Albumin/Globulin Ratio Triglycerides Cholesterol LDL Cholesterol, Calc HDL Cholesterol Lipase Procalcitonin 11/13/19 11/13/19 11/13/19 02:11 02:11 02:11 WBC RBC Hgb Hct MCV MCH MCHC RDW Plt Count Neut % (Auto) Lymph % (Auto) [place] % (Auto) Eos % (Auto) Baso % (Auto) Neut # (Auto) Lymph # (Auto) [place] # (Auto) Eos # (Auto) Baso # (Auto) PT INR APTT Sodium 140 Potassium 4.1 Chloride 105 Carbon Dioxide 28 BUN 24 H Creatinine 1.07 Estimated GFR > 60.0 BUN/Creatinine Ratio 22.4 H Glucose 128 H Calcium 8.5 Magnesium Total Bilirubin 0.6 AST 32 ALT 25 Alkaline Phosphatase 80 Total Creatine Kinase CK-MB (CK-2) CK-MB (CK-2) Rel Index Troponin I NT-Pro-B Natriuret Pep 572 H Total Protein 7.4 Albumin 4.1 Globulin 3.3 Albumin/Globulin Ratio 1.2 Triglycerides Cholesterol LDL Cholesterol, Calc HDL Cholesterol Lipase 130 Procalcitonin < 0.05 11/13/19 11/13/19 11/13/19 04:10 04:10 10:13 WBC RBC Hgb Hct MCV MCH MCHC RDW Plt Count Neut % (Auto) Lymph % (Auto) [place] % (Auto) Eos % (Auto) Baso % (Auto) Neut # (Auto) Lymph # (Auto) [place] # (Auto) Eos # (Auto) Baso # (Auto) PT INR APTT Sodium Potassium Chloride Carbon Dioxide BUN Creatinine Estimated GFR BUN/Creatinine Ratio Glucose Calcium Magnesium Total Bilirubin AST ALT Alkaline Phosphatase Total Creatine Kinase 56 CK-MB (CK-2) TNP CK-MB (CK-2) Rel Index TNP Troponin I 0.015 0.012 NT-Pro-B Natriuret Pep Total Protein Albumin Globulin Albumin/Globulin Ratio Triglycerides 131 Cholesterol 193 LDL Cholesterol, Calc 122 H HDL Cholesterol 45 Lipase Procalcitonin Discharge Plan Discharge Plan Patient Disposition: Home Discharge comment: You were admitted for evaluation of chest pain. Your cardiac enzymes are normal. We started you on chlorthalidone for BP control. Have electrolytes checked in 1 to 2 weeks and follow up with Dr Ornelas for cardiology. Discharge orders & Medications Prescriptions: New chlorthalidone 25 mg Tablet 25 mg PO DAILY Qty: 30 RF: 0 Continued Eliquis 5 MG tablet 5 mg PO BID Qty: 0 RF: 0 potassium chloride 20 MEQ tablet,ER particles/crystals 20 meq PO QDAY Qty: 30 RF: 0 multivitamin [Multiple Vitamins] 1 EACH tablet 1 tab PO QDAY Qty: 0 RF: 0 (DME) [employer] Dreamstation BIPAP Qty: 1 RF: 0 hydroxyzine pamoate 50 mg capsule 50 mg PO BID PRN (Reason: anxiety) Qty: 60 RF: 5 propranolol 20 mg tablet 20 mg PO BID Qty: 60 RF: 5 Follow up/Referrals: Chintan Masters MD [Primary Care Provider] - Ruddy Ornelas MD [Physician] - 2 Weeks Diet/Activity/Treatments Diet: Diet as Tolerated Discharge Data Primary Care Provider: Chintan Masters Attending Provider: Camille Blake Admit Date/Time: 11/13/19 04:02 Quality VTE Deep Vein Thrombosis/Pulmonary Embolism Present on Admission: No
[2019-11-13] MEDS: OXYCODONE IR 5 MG TABLET PO (12:24)
== END 2019-11-13 13:45 | disposition home or self-care (01) ==
LOC: ED 04:01 → AC 04:02
PROVIDERS: Admitting Provider Nurse Practitioner Family; Emergency Provider Emergency Medicine; Family Provider Internal Medicine Infectious Disease; PCP Student in an Organized Health Care Education/Training Program; Visit Provider Nurse Practitioner Family
DX: R06.02 Shortness of breath (principal); R07.9 Chest pain, unspecified; I10 Essential (primary) hypertension; E03.9 Hypothyroidism, unspecified; G47.33 Obstructive sleep apnea (adult) (pediatric); Z95.0 Presence of cardiac pacemaker; F17.210 Nicotine dependence, cigarettes, uncomplicated; R51 Headache; T46.3X5A Adverse effect of coronary vasodilators, initial encounter; F41.9 Anxiety disorder, unspecified; I48.20 Chronic atrial fibrillation, unspecified
CPT/HCPCS: 36415; 71045; 80053; 80061; 82550; 83690; 83735; 83880; 84145; 84484; 85025; 85610; 85730; 93005; 94762; 96374; 99284; 99285; G0378; J1940

== ENCOUNTER → 2020-07-22 16:13 | Outpatient (CLI) | payer OTHER, MEDICARE, SELFPAY ==
[2020-07-16 11:34] VITALS: BMI 40.7
--- NOTE | 2020-07-22 16:15 | DI.RAD.S_ITS ---
PROCEDURE: XR CERVICAL SPINE 2V OR 3V INDICATIONS: Neck pain; h/o bone spurs TECHNIQUE: 3 view(s) of the cervical spine were acquired. COMPARISON: None. FINDINGS: Bones: No fractures or dislocations to the T1 level. The lateral masses of C1 appear intact on the odontoid view. No suspicious bony lesions. Loss of lordosis which could be related to muscle spasm, rigidity or simply positional. Multilevel disc degeneration, most notably and severe at the C5-C6 and C6-C7 levels. Moderate multilevel mid and lower cervical spine facet joint arthropathy and uncovertebral hypertrophy. Soft tissues: No prevertebral soft tissue swelling. The cardiac pacer incompletely visualized. IMPRESSION: Loss of lordosis and multilevel spondylosis. Dictated by: Robin WISE Interpreted: Rony Tran MD on 07/22/2020 at 16:31 Approved by: Rony Tran M.D. on 07/22/2020 at 17:04
== END ==
PROVIDERS: Family Provider Internal Medicine Infectious Disease; PCP Student in an Organized Health Care Education/Training Program; Referring Provider Student in an Organized Health Care Education/Training Program; Visit Provider Student in an Organized Health Care Education/Training Program
DX: M54.2 Cervicalgia (principal); M47.812 Spondylosis without myelopathy or radiculopathy, cervical region
CPT/HCPCS: 72040

== ENCOUNTER 2021-01-23 12:28 | Emergency (ER) | payer OTHER, MEDICARE, SELFPAY ==
[2020-07-16 11:34] VITALS: BMI 40.7
[2021-01-23 12:53] VITALS: BP 165/100; PULSE 85; RESP 16; TEMP 36.7; O2SAT 95; BMI 34.9
--- NOTE | 2021-01-23 15:03 | ED_ITS ---
HPI - Anxiety General Chief Complaint: Anxiety Stated Complaint: SI Time Seen by Provider: 01/23/21 14:34 Source: patient Mode of arrival: Wheelchair Limitations: no limitations History of Present Illness HPI narrative: 71-year-old male smoker presents with a close friend and a chief complaint of increasing depression, anxiety, insomnia over the past weeks to months. He states he has really been having trouble ever since COVID started due to many problems including chronic pain, work related, home related and now sleep related issues. He denies suicidal or homicidal ideation. He cares for himself and eats and drinks and bathes. He is largely hoping to get some help taking the edge off until he is able to follow up with primary care provider. He feels depressed and rarely does much in the way of activity. He denies any significant alcohol, caffeine or nicotine. MD complaint: anxiety Onset (ago): month(s) Severity: moderate Quality: constant Provoking factors: emotional stress, work/job stress and recent /illness of family member Relieving factors: nothing Associated symptoms: denies other symptoms Related Data Home Medications Medication Instructions Recorded Confirmed Eliquis 5 mg PO BID #0 07/14/17 10/13/20 multivitamin [Multiple Vitamins] 1 tab PO QDAY #0 11/24/17 10/13/20 Respironics Dreamstation BIPAP #1 ea 01/29/19 10/13/20 Previous Rx's Medication Instructions Recorded sildenafil 50 mg tablet 50 mg PO DAILY PRN #20 tab 12/27/19 propranolol 80 mg capsule,24 80 mg PO DAILY #90 cap 06/02/20 hr,extended release chlorthalidone 50 mg tablet 50 mg PO DAILY #90 tab 07/09/20 potassium chloride 20 mEq 20 meq PO QDAY #90 tab 10/13/20 tablet,extended release(part/cryst) alprazolam [Xanax] 0.25 mg PO TID PRN #20 tab 01/23/21 Allergies Allergy/AdvReac Type Severity Reaction Status Date / Time vancomycin Allergy Severe BREATHING Verified 10/13/20 14:55 ISSUES dabigatran etexilate Allergy Unknown Verified 10/13/20 14:55 [DABIGATRAN ETEXILATE] Penicillins Allergy Unknown CHILDHOOD Verified 10/13/20 14:55 rivaroxaban [RIVAROXABAN] Allergy Unknown Verified 10/13/20 14:55 azithromycin [AZITHROMYCIN] AdvReac Intermediate GI and Verified 10/13/20 14:55 myalgia Review of Systems Constitutional Constitutional: Denies chills, Denies fatigue, Denies fever(s), Denies frequent falls, Denies lethargy and Denies weakness Eyes Eyes: Denies change in vision, Denies eye discharge, Denies irritation and Denies loss of vision ENT Ears, Nose, Mouth, and Throat: Denies change in voice, Denies dizziness, Denies neck pain, Denies sore throat and Denies throat swelling Cardiovascular Cardiovascular: Denies chest pain, Denies irregular heart rhythm, Denies lightheadedness, Denies palpitations, Denies dyspnea, Denies dyspnea on exertion and Denies orthopnea Respiratory Respiratory: Denies cough, Denies dyspnea, Denies dyspnea on exertion and Denies wheezing Gastrointestinal Gastrointestinal: Denies abdominal pain, Denies change in bowel habits, Denies diarrhea, Denies nausea and Denies vomiting Musculoskeletal Musculoskeletal: Denies neck pain and Denies numbness Integumentary/Breasts Skin/Breast: Denies pruritus, Denies erythema, Denies rash and Denies wounds Neurologic Neurologic: Denies behavioral changes, Denies confusion, Denies dizziness, Denies frequent falls, Denies loss of vision, Denies numbness and Denies weakness Psychiatric Psychiatric: Reports anxiety, Denies behavioral changes, Denies confusion, Reports depression, Denies homicidal ideation and Denies suicidal ideation Endocrine Endocrine: Denies fatigue, Denies flushing and Denies palpitations Hematologic/Lymphatic Hematologic/Lymphatic: Denies easy bruising Allergic/Immunologic Allergic/Immunologic: Denies urticaria, Denies throat swelling and Denies wheezing Patient History Medical History Atrial fibrillation Bilateral shoulder pain Chest pain Essential hypertension (08/03/11) Generalized anxiety disorder Hypertensive urgency Hypothyroid Obstructive sleep apnea Pacemaker Sick sinus syndrome Unilateral osteoarthritis of knee Surgical History History of permanent cardiac pacemaker placement History of right knee joint replacement Family History Father Abdominal aortic aneurysm Mother Old age Social History household members: spouse Smoking Status: Current some day smoker alcohol intake: current Smoking Status: Current some day smoker alcohol intake frequency: holidays/special occasions only Substance Use Type: does not use Exam Narrative Exam Narrative: GENERAL: [71] year old patient appears stated age. Well- nourished, well-developed patient, in mild distress. Tearful, good insight. HEAD: Atraumatic. Normocephalic. EYES: Pupils equal round and reactive. Extraocular motions intact. No scleral icterus. No injection or drainage. ENT: Nose without bleeding, purulent drainage. Throat without erythema, tonsillar hypertrophy or exudate. Airway patent. NECK: Trachea midline. Non tender CARDIOVASCULAR: Regular rate and rhythm without murmurs, gallops, or rubs. RESPIRATORY: Clear to auscultation. Breath sounds equal bilaterally. No wheezes, rales, or rhonchi. GASTROINTESTINAL: Abdomen soft, non-tender, nondistended. EXTREMITIES: No edema or joint tenderness. BACK: Nontender without deformity or crepitance. No flank tenderness. NEURO: AOx3. SKIN: No rash or erythema of visible areas Initial Vital Signs Initial Vital Signs: Vital Signs Temperature 98.0 F 01/23/21 12:53 Pulse Rate 85 01/23/21 12:53 Respiratory Rate 16 01/23/21 12:53 Blood Pressure 165/100 H 01/23/21 12:53 Pulse Oximetry 95 01/23/21 12:53 Course Vital Signs Vital signs: Vital Signs - 8 hr 01/23/21 12:53 01/23/21 15:35 Temperature 98.0 F Pulse Rate 85 80 Respiratory Rate 16 Blood Pressure 165/100 H 181/115 H Pulse Oximetry 95 99 Discharge Plan Departure Patient Disposition: Home Clinical Impression: Anxiety Depression Qualifiers: Depression Type: major depressive disorder Major depression recurrence: recurrent Active/Remission status: currently active Major depression episode severity: moderate Qualified Code(s): F33.1 - Major depressive disorder, recurrent, moderate Insomnia Qualifiers: Insomnia type: unspecified Qualified Code(s): G47.00 - Insomnia, unspecified Instructions: Anxiety Disorders Activity Restrictions/Additional Instructions: *You have been diagnosed with [anxiety, depression and insomnia] *What to do: *Please continue to take your regular medications as directed. [ ] New medication prescriptions sent to your pharmacy: [ ] [ x] New medication written as a paper prescription [ ] No new medications given *Please follow up with your primary care provider in 2-3 days, call for an appointment. Let them know you were seen in the Emergency Department and that we ask that you be seen in follow up. We will electronically transmit a record of today's note if your PCP is in our system *If you do not have a primary care provider please contact the [facility] Resource line at [phone]. They will ask some questions about your medical history and help get you set up with a doctor in the community. *Return to Emergency Department if you should have any new, worsening or concerning symptoms, such as [fever greater than 101 F, shaking chills, worsening pain, persistent vomiting or other bothersome symptoms] Prescriptions: New alprazolam [Xanax] 0.25 mg tablet 0.25 mg PO TID PRN (Reason: anxiety) Qty: 20 RF: 0 No Action Eliquis 5 MG tablet 5 mg PO BID Qty: 0 RF: 0 multivitamin [Multiple Vitamins] 1 EACH tablet 1 tab PO QDAY Qty: 0 RF: 0 (DME) Respironics Dreamstation BIPAP Qty: 1 RF: 0 sildenafil 50 mg tablet 50 mg PO DAILY PRN (Reason: sexual activity) Qty: 20 RF: 5 propranolol 80 mg capsule,extended release 24 hr 80 mg PO DAILY Qty: 90 RF: 1 chlorthalidone 50 mg tablet 50 mg PO DAILY Qty: 90 RF: 1 potassium chloride 20 mEq tablet,ER particles/crystals 20 meq PO QDAY Qty: 90 RF: 3 Referrals: Chintan Masters MD [Primary Care Provider] -
[2021-01-23 15:35] VITALS: BP 181/115; PULSE 80; O2SAT 99
== END 2021-01-23 15:35 | disposition home or self-care (01) ==
PROVIDERS: Emergency Provider Emergency Medicine; Family Provider Internal Medicine Infectious Disease; PCP Student in an Organized Health Care Education/Training Program
DX: F41.9 Anxiety disorder, unspecified (principal); F33.1 Major depressive disorder, recurrent, moderate; G47.00 Insomnia, unspecified
CPT/HCPCS: 99281

== ENCOUNTER → 2021-03-02 15:19 | Outpatient (CLI) | payer OTHER, MEDICARE, SELFPAY ==
[2020-07-16 11:34] VITALS: BMI 40.7
--- NOTE | 2021-03-02 | DI.RAD.S_ITS ---
PROCEDURE: XR ANKLE LT MIN 3V INDICATIONS: acute left ankle pain TECHNIQUE: 3 views of the ankle were acquired. COMPARISON: None. FINDINGS: Bones: No fractures or dislocations. Ankle mortise is normally aligned. Dystrophic calcification at the Achilles tendon insertion. No suspicious bony lesions. Soft tissues: No tibiotalar joint effusion. Achilles tendon appears normal. IMPRESSION: Intact left ankle. Chronic or remote Achilles tendinopathy. Dictated by: Cinthya Andino M.D. on 03/02/2021 at 16:41 Approved by: Cinthya Andino M.D. on 03/02/2021 at 16:43
== END ==
PROVIDERS: Family Provider Internal Medicine Infectious Disease; Referring Provider Internal Medicine; Visit Provider Internal Medicine
DX: M25.572 Pain in left ankle and joints of left foot (principal)
CPT/HCPCS: 73610

== ENCOUNTER → 2022-01-12 11:53 | Outpatient (CLI) | payer OTHER, MEDICARE, SELFPAY ==
[2022-01-12 11:45] VITALS: BMI 40.7
[2022-01-12 12:53] LABS: Hematocrit 46.4 % (41-53); Hemoglobin 16.3 g/dL (13.5-17.5); Mean Corpuscular HGB Conc 35.2 % (30-36); Mean Corpuscular Hemoglobin 32.1 PG (26-34); Mean Corpuscular Volume 91.3 fL (80-100); Platelet Count 217 X10^3/uL (150-400); Red Blood Cell Count 5.09 X10^6/uL (4.5-5.9); Red Cell Distribution Width 14.9 % (11.6-14.8); White Blood Cell Count 7.8 X10^3/uL (4.5-11.0)
[2022-01-12 13:06] LABS: Alanine Aminotransferase 17 IU/L (<50); Albumin 4.5 g/dL (3.5-5.0); Albumin Globulin Ratio 1.1 (1.0-2.8); Alkaline Phosphatase 67 U/L (38-126); Aspartate Aminotransferase 21 IU/L (17-59); BUN Creatinine Ratio 22.3 (6-22); Bilirubin Total 0.9 mg/dL (0.2-1.3); Blood Urea Nitrogen 21 mg/dL (9-20); C-Reactive Protein Quant 5.6 mg/dL (<1.0); Calcium 9.3 mg/dL (8.4-10.2); Carbon Dioxide 36 mmol/L (22-32); Chloride 98 mmol/L (98-107); Cholesterol 174 mg/dL (140-199); Estimated Glomerular Filt Rate > 60 mL/min (>60); Globulin 4.1 g/dL (1.7-4.1); Glucose 116 mg/dL (80-110); HDL Cholesterol 38 mg/dL (40-60); HEMOLYSIS < 15 (0-50); LDL Cholesterol Calculated 115 mg/dL (<100); Potassium 3.3 mmol/L (3.4-5.1); Sodium 141 mmol/L (137-145); Total Protein 8.6 g/dL (6.3-8.2); Triglycerides 103 mg/dL (35-150); Uric Acid 9.1 mg/dL (3.5-8.5)
[2022-01-12 13:32] LABS: Prostate Specific Antigen 1.42 ng/mL (0.10-4.00)
[2022-01-12 13:35] LABS: TSH w/ Reflex to FT4 3.49 uIU/mL (0.47-4.68)
[2022-01-12 13:44] LABS: Erythrocyte Sedimentation Rate 17 MM/HR (0-15)
== END ==
PROVIDERS: Family Provider Internal Medicine Infectious Disease; PCP Internal Medicine; Referring Provider Internal Medicine; Visit Provider Internal Medicine
DX: E78.2 Mixed hyperlipidemia (principal); I10 Essential (primary) hypertension; I48.0 Paroxysmal atrial fibrillation; M10.9 Gout, unspecified; Z79.01 Long term (current) use of anticoagulants; N40.0 Benign prostatic hyperplasia without lower urinary tract symptoms
CPT/HCPCS: 36415; 80053; 80061; 84153; 84443; 84550; 85027; 85651; 86140

== ENCOUNTER → 2022-07-08 13:15 | Outpatient (CLI) | payer OTHER, MEDICARE, SELFPAY ==
[2022-01-12 11:45] VITALS: BMI 40.7
[2022-07-08 14:27] LABS: Hematocrit 48.4 % (41-53); Hemoglobin 16.8 g/dL (13.5-17.5); Mean Corpuscular HGB Conc 34.7 % (30-36); Mean Corpuscular Hemoglobin 31.3 PG (26-34); Mean Corpuscular Volume 90.2 fL (80-100); Platelet Count 179 X10^3/uL (150-400); Red Blood Cell Count 5.36 X10^6/uL (4.5-5.9); Red Cell Distribution Width 14.4 % (11.6-14.8); White Blood Cell Count 6.8 X10^3/uL (4.5-11.0)
[2022-07-08 15:20] LABS: Alanine Aminotransferase 25 IU/L (<50); Albumin 4.4 g/dL (3.5-5.0); Albumin Globulin Ratio 1.2 (1.0-2.8); Alkaline Phosphatase 66 U/L (38-126); Aspartate Aminotransferase 30 IU/L (17-59); BUN Creatinine Ratio 27.8 (6-22); Bilirubin Total 1.1 mg/dL (0.2-1.3); Blood Urea Nitrogen 25 mg/dL (9-20); Calcium 9.1 mg/dL (8.4-10.2); Carbon Dioxide 30 mmol/L (22-32); Chloride 102 mmol/L (98-107); Cholesterol 185 mg/dL (140-199); Estimated Glomerular Filt Rate > 60 mL/min (>60); Globulin 3.7 g/dL (1.7-4.1); Glucose 88 mg/dL (80-110); HDL Cholesterol 46 mg/dL (40-60); HEMOLYSIS < 15 (0-50); LDL Cholesterol Calculated 112 mg/dL (<100); Potassium 3.5 mmol/L (3.4-5.1); Sodium 142 mmol/L (137-145); Total Protein 8.1 g/dL (6.3-8.2); Triglycerides 133 mg/dL (35-150); Uric Acid 8.4 mg/dL (3.5-8.5)
[2022-07-08 15:50] LABS: Prostate Specific Antigen 0.731 ng/mL (0.10-4.00)
[2022-07-08 16:04] LABS: TSH w/ Reflex to FT4 3.03 uIU/mL (0.47-4.68)
== END ==
PROVIDERS: Family Provider Internal Medicine Infectious Disease; PCP Internal Medicine; Referring Provider Internal Medicine; Visit Provider Internal Medicine
DX: I10 Essential (primary) hypertension (principal); I48.20 Chronic atrial fibrillation, unspecified; M1A.9XX0 Chronic gout, unspecified, without tophus (tophi); N40.0 Benign prostatic hyperplasia without lower urinary tract symptoms; Z79.01 Long term (current) use of anticoagulants
CPT/HCPCS: 36415; 80053; 80061; 84153; 84443; 84550; 85027

== ENCOUNTER → 2024-01-24 13:33 | Outpatient (CLI) | payer OTHER, MEDICARE, SELFPAY ==
[2022-01-12 11:45] VITALS: BMI 40.7
--- NOTE | 2024-01-24 13:39 | DI.ECHO.S_ITS ---
[place] +---------+ [facility] : : [address] : : [place] : : [id number] : : Phone: [phone] Echocardiogram Report + + :Name: MILANA CLARK Study Date: 01/24/2024 Height: 68 in : :Hospital ReadingLocation: Weight: 225 lb : : Gender: Male BSA: 2.1 m2 : :: 1950 Age: 74 yrs BP: 113/85 mmHg: :Reason For Study: ATRIAL FIBRILLATION : :Ordering Physician: Geoff LANEformed By: Deysi Chan : :Referring: DOROTHEA LANE : + + Interpretation Summary The left ventricle is normal in size. Left ventricular systolic function appears normal without focal wall motion abnormalities. The ejection fraction is estimated to be 55-60%. There is a pacemaker lead in the right ventricle. The right ventricle is borderline dilated. The right ventricular systolic function is normal. The right ventricular systolic pressure is estimated to be at least 27 mmHg based on an estimated right atrial pressure of 3 mm Hg. The left atrium is severely dilated. The right atrium is severely dilated. There is moderate to severe mitral annular calcification. There is mild mitral regurgitation. There is mild aortic regurgitation. There is mild to moderate tricuspid regurgitation. Procedure: A two-dimensional transthoracic echocardiogram with color flow and Doppler was performed. The study quality was technically adequate. Comparison is made with the echocardiogram of 12/27/2018. The patient was in atrial fibrillation with heart rates between 66-90 bpm during the exam. Left Ventricle: The left ventricle is normal in size. There is mild concentric left ventricular hypertrophy. Left ventricular systolic function appears normal without focal wall motion abnormalities. The ejection fraction is estimated to be 55-60%. Diastolic function could not be accurately assessed due to atrial fibrillation. Right Ventricle: There is a pacemaker lead in the right ventricle. The right ventricle is borderline dilated. The right ventricular systolic function is normal. Atria: The left atrium is severely dilated. The right atrium is severely dilated. There is a catheter/pacemaker lead seen in the right atrium. There is no Doppler evidence for an interatrial shunt. Mitral Valve: There is moderate to severe mitral annular calcification. The mitral valve leaflets appear mildly thickened, but open well. The mitral valve mean gradient is 2.6 mmHg. There is mild mitral regurgitation. Aortic Valve: The aortic valve is trileaflet. The aortic valve opens well. There is no aortic valve stenosis. There is mild aortic regurgitation. Tricuspid Valve: The tricuspid valve is normal in structure and function. There is mild to moderate tricuspid regurgitation. The right ventricular systolic pressure is estimated to be at least 27 mmHg based on an estimated right atrial pressure of 3 mm Hg. Pulmonic Valve: The pulmonic valve leaflets are thin and pliable; valve motion is normal. There is mild pulmonic regurgitation. Great Vessels: The aortic root is normal size. The dimensions of the ascending aorta are normal. The IVC is of normal diameter and collapses greater than 50% with a sniff. This suggests a low right atrial pressure of 3 mm Hg. Pericardium/ Pleura There is no pericardial effusion. There is no pleural effusion. MMode/2D Measurements & Calculations LVIDd: 4.7 cm LVOT diam: 2.2 cm LVIDs: 3.0 cm Ao root diam: 3.5 cm FS: 36.6 % asc Aorta Diam: 3.6 cm IVSd: 1.4 cm Ao Arch Diam (Prox Trans): 3.3 cm LVPWd: 1.1 cm LV hull. diameter/BSA (cm/m^2): 2.2 LV sys. diameter/BSA (cm/m^2): 1.4 LA A2 area: 55.0 cm2 RA long axis: 8.5 cm LA A4 area: 47.3 cm2 RA area: 43.4 cm2 LA length (vol): 8.9 cm RA vol: 189.3 ml LA vol: 248.5 ml RA : 88.1 ml/m2 LA vol index: 115.7 ml/m2 IVC diam: 1.3 cm RVD1 (basal): 4.0 cm RVD2 (mid): 3.0 cm TAPSE: 2.0 cm Doppler Measurements & Calculations Ao V2 max: 145.1 cm/sec LVOT Max Sergey: 80.6 cm/sec Ao V2 mean: 98.7 cm/sec LV V1 max P.6 mmHg Ao max P.7 mmHg LV V1 VTI: 13.6 cm Ao mean P.8 mmHg TED(I,D): 2.3 cm2 Ao V2 VTI: 23.4 cm TED(V,D): 2.2 cm2 sev ratio: 0.58 TED indexed to BSA (cm^2/m^2): 1.1 MV E max sergey: 111.9 cm/sec TR max sergey: 246.4 cm/sec MV A max sergey: 1.0 cm/sec TR max P.3 mmHg MV E/A: 107.7 PA V2 max: 72.5 cm/sec Med Peak E' Sergey: 8.8 cm/sec PA V2 mean: 53.0 cm/sec E/E' med: 12.7 PA mean P.2 mmHg Lat Peak E' Sergey: 8.5 cm/sec PA pr(Accel): 37.9 mmHg E/E' lat: 13.1 E/e' average: 12.9 MV dec time: 0.16 sec MVA(VTI): 2.3 cm2 MV V2 mean: 75.1 cm/sec SV(LVOT): 53.1 ml MV mean P.6 mmHg MV V2 VTI: 23.3 cm Reading Physician:05:02 PM
[2024-01-24 14:32] LABS: Alanine Aminotransferase 24 IU/L (<50); Albumin 4.5 g/dL (3.5-5.0); Albumin Globulin Ratio 1.6 (1.0-2.8); Alkaline Phosphatase 58 U/L (38-126); Aspartate Aminotransferase 24 IU/L (17-59); Blood Urea Nitrogen 26 mg/dL (9-20); Calcium 9.2 mg/dL (8.4-10.2); Carbon Dioxide 33 mmol/L (22-32); Chloride 102 mmol/L (98-107); Estimated Glomerular Filt Rate > 60 mL/min (>60); Globulin 2.8 g/dL (1.7-4.1); Glucose 103 mg/dL (80-110); HEMOLYSIS < 15 (0-50); Potassium 3.5 mmol/L (3.4-5.1); Sodium 140 mmol/L (137-145); Total Protein 7.3 g/dL (6.3-8.2)
== END ==
PROVIDERS: Family Provider Internal Medicine Infectious Disease; PCP Internal Medicine; Referring Provider Internal Medicine Cardiovascular Disease; Visit Provider Internal Medicine Cardiovascular Disease
DX: I08.3 Combined rheumatic disorders of mitral, aortic and tricuspid valves (principal); I48.21 Permanent atrial fibrillation
CPT/HCPCS: 36415; 80053; 93306

== ENCOUNTER → 2024-03-25 17:08 | Outpatient (CLI) | payer OTHER, MEDICARE, SELFPAY ==
[2022-01-12 11:45] VITALS: BMI 40.7
[2024-03-25 17:44] LABS: HEMOLYSIS < 15 (0-50)
[2024-03-25 17:50] LABS: Blood Urea Nitrogen 20 mg/dL (9-20); Calcium 9.2 mg/dL (8.4-10.2); Carbon Dioxide 24 mmol/L (22-32); Chloride 104 mmol/L (98-107); Cholesterol 246 mg/dL (140-199); Estimated Glomerular Filt Rate > 60 mL/min (>60); Glucose 119 mg/dL (80-110); HDL Cholesterol 45 mg/dL (40-60); LDL Cholesterol Calculated 146 mg/dL (<100); Potassium 3.4 mmol/L (3.4-5.1); Sodium 139 mmol/L (137-145); Triglycerides 273 mg/dL (35-150)
[2024-03-25 18:24] LABS: Prostate Specific Antigen 1.26 ng/mL (0.10-4.00)
== END ==
PROVIDERS: Family Provider Internal Medicine Infectious Disease; PCP Internal Medicine; Referring Provider Internal Medicine; Visit Provider Internal Medicine
DX: N40.1 Benign prostatic hyperplasia with lower urinary tract symptoms (principal); N13.8 Other obstructive and reflux uropathy; E78.2 Mixed hyperlipidemia
CPT/HCPCS: 36415; 80048; 80061; 84153

== ENCOUNTER → 2024-10-29 11:21 | Outpatient (CLI) | payer OTHER, MEDICARE, SELFPAY ==
[2022-01-12 11:45] VITALS: BMI 40.7
--- NOTE | 2024-10-29 11:24 | DI.RAD.S_ITS ---
PROCEDURE: XR FOOT LT MIN 3V INDICATIONS: left foot pain, no trauma TECHNIQUE: 3 views of the foot were acquired. COMPARISON: None. FINDINGS: Bones: No fractures or dislocations. No suspicious bony lesions. Soft tissues: No tibiotalar joint effusion. Achilles tendon appears normal. IMPRESSION: No acute bony abnormality. Approved by: Vladimir Smith M.D. on 10/29/2024 at 18:01
== END ==
PROVIDERS: Family Provider Internal Medicine Infectious Disease; PCP Internal Medicine; Referring Provider Internal Medicine; Visit Provider Internal Medicine
DX: M79.672 Pain in left foot (principal); M10.9 Gout, unspecified
CPT/HCPCS: 73630

== ENCOUNTER → 2025-05-28 16:04 | Outpatient (CLI) | payer OTHER, MEDICARE, SELFPAY ==
[2022-01-12 11:45] VITALS: BMI 40.7
== END ==
LOC: RESP 16:05
PROVIDERS: PCP Internal Medicine; Referring Provider Internal Medicine; Visit Provider Internal Medicine
DX: R06.09 Other forms of dyspnea (principal); F17.210 Nicotine dependence, cigarettes, uncomplicated; R94.2 Abnormal results of pulmonary function studies
CPT/HCPCS: 94060; 94726; 94729

== ENCOUNTER 2025-08-22 23:52 | Emergency (ER) | payer OTHER, MEDICARE, SELFPAY ==
[2022-01-12 11:45] VITALS: BMI 40.7
[2025-08-23] VITALS (49 sets, daily range): BP systolic 134–182; BP diastolic 88–126; PULSE 62–122; RESP 7–26; TEMP 36.3; O2SAT 92–97; BMI 35.7
--- NOTE | 2025-08-23 00:15 | DI.RAD.S_ITS ---
PROCEDURE: XR CHEST 1V INDICATIONS: Chest Pain TECHNIQUE: One view of the chest was acquired. COMPARISON: [facility], CR, XR CHEST 1V, 11/13/2019, 2:03. [facility], CR, XR CHEST 2V, 06/25/2018, 23:34. FINDINGS AND IMPRESSION: No airspace consolidation or pleural effusion on this single view study. Low lung volumes. Cardiomegaly. Left chest wall pulse generator with electrode leads in expected radiographic position. Degenerative osseous changes. Dictated by: Raymond Guzman M.D. on 08/23/2025 at 1:09 Approved by: Raymond Guzman M.D. on 08/23/2025 at 1:10
--- NOTE | 2025-08-23 00:22 | EKG_ITS ---
[facility] [address] [place] [address] Test Date: 2025-08-23 Pat Name: Reed Reid Department: [facility] Room: Gender: Male Teller Head: yasmin : 1950 Requested By: Order Number: [id number] Reading MD: Stephane Smith Measurements Intervals [place] Rate: 84 P: 59 LA: QRS: 36 QRSD: 86 T: -50 QT: 358 QTc: 423 Interpretive Statements Undetermined rhythm Low voltage QRS Cannot rule out Anteroseptal infarct , age undetermined ST & T wave abnormality, consider inferior ischemia Electronically Signed On 08-25-2025 10:20:00 PST by Stephane Smith
[2025-08-23 00:32] LABS: Add Manual Diff / Slide Review NO; Hematocrit 45.0 % (41-53); Hemoglobin 15.3 g/dL (13.5-17.5); Lymphocytes Absolute Auto 1800 /uL (1100-4500); Mean Corpuscular HGB Conc 34.0 % (30-36); Mean Corpuscular Hemoglobin 30.2 PG (26-34); Mean Corpuscular Volume 88.8 fL (80-100); Platelet Count 136 X10^3/uL (150-400)
[2025-08-23 00:41] LABS: INR 1.4 (0.9-1.3); Prothrombin Time 15.5 SECONDS (9.4-12.5)
[2025-08-23 00:44] LABS: PTT Partial Thromboplastin Tim 37 SECONDS (25.1-36.5)
--- NOTE | 2025-08-23 00:48 | ED_ITS ---
HPI - Chest Pain <Renetta Fisher MD - Last Filed: 08/23/25 05:27> General Chief Complaint: Chest Pain Stated Complaint: Chest Pain, Rapid Heart Rate Time Seen by Provider: 08/23/25 00:21 Source: patient Mode of arrival: Ambulatory Limitations: no limitations History of Present Illness HPI narrative: 75-year-old gentleman with a history of hypertension paroxysmal AFib for which he is anticoagulated on apixaban was laying down in bed at approximately 11:00 a.m. this evening began having left-sided chest pain, initially described as a slight ache centrally. Now is currently pain-free. Notes that he has been having significant water weight increases as much as 10 lb in a the last couple of days. Notes increasing fatigue and exertional dyspnea. Review of recent cardiac notes he had a nuclear medicine stress test in October that actually was positive. Cardiology notes indicate catheterization was recommended and declined. Patient does not recall this discussion nor decision. Has been on chlorthalidone, with water increased he was placed on furosemide which did not seem to be effective then switch back to chlorthalidone that was discontinued and who was recently started on losartan. Do not believe that he is currently on a diuretic Related Data Home Medications ?Medication ?Instructions ?Recorded ?Confirmed multivitamin (Multiple Vitamins 1 tab PO QDAY ##0 /08/23/25 tablet) RespirPapiruss Dreamstation BIPAP #1 ea 01/29/19 08/23/25 coenzyme Q10 1 cap PO DAILY 06/02/2207/29 propranolol 80 mg capsule,24 80 mg PO DAILY 06/23/25 1 10/24/24 hr,extended release Previous Rx's ?Medication ?Instructions ?Recorded facial mask #1 ea 01/12/22 apixaban 5 mg tablet (Eliquis) 5 mg PO BID #180 tabs 0 03/25/24 potassium chloride 20 mEq 20 meq PO BID #180 tabs 02/26 05/21 tablet,extended release(part/cryst) colchicine 0.6 mg tablet 0.6 mg PO 4XD PRN for gout p ain 02/24/25 #30 tabs Parking Permit... #1 ea 05/19/25 allopurinol 300 mg tablet 300 mg PO DAILY #90 tabs losartan 50 mg tablet 50 mg PO DAILY #90 tabs 07/28 01/19 Allergies Allergy/AdvReac Type Severity Reaction Status Date / Time Penicillins Allergy Severe Anaphylaxis Verified 08/23/25 00:04 vancomycin Allergy Severe BREATHING Verified 08/23/25 00:04 ISSUES dabigatran etexilate Allergy Unknown Verified 08/23/25 00:04 (DABIGATRAN ETEXILATE) rivaroxaban (RIVAROXABAN) Allergy Unknown Muscle Pain Verified 08/23/25 00:04 azithromycin (AZITHROMYCIN) AdvReac Intermediate GI and Verified 08/23/25 00:04 myalgia chlorthalidone AdvReac Intermediate gout Verified 08/23/25 00:04 Review of Systems <Renetta Fisher MD - Last Filed: 08/23/25 05:27> Review of Systems Narrative: Pertinent positive and negative findings as per HPI Patient History <Renetta Fisher MD - Last Filed: 08/23/25 05:27> Medical History Chest pain Chronic anticoagulation Chronic atrial fibrillation Depression, major, recurrent Erectile dysfunction Essential hypertension Generalized anxiety disorder Gout Hypertensive urgency Hypothyroid Mixed hyperlipidemia Obstructive sleep apnea Other thrombophilia Primary osteoarthritis, right shoulder RLS (restless legs syndrome) Sick sinus syndrome Tobacco use disorder Unilateral osteoarthritis of knee Surgical History History of permanent cardiac pacemaker placement History of right knee joint replacement S/P cardiac pacemaker procedure Family History Father Abdominal aortic aneurysm Mother Old age Social History household members: spouse Smoking Status: Current every day smoker alcohol intake: current Smoking Status: Current every day smoker tobacco type: cigarettes and smokeless tobacco alcohol intake frequency: holidays/special occasions only Exam <Renetta Fisher MD - Last Filed: 08/23/25 05:27> Initial Vital Signs Initial Vital Signs: Vital Signs Temperature 97.4 F L 08/23/25 00:06 Pulse Rate 77 08/23/25 00:06 Respiratory Rate 18 08/23/25 00:06 Blood Pressure 134/101 H 08/23/25 00:06 Pulse Oximetry 96 08/23/25 00:06 Oxygen Delivery Method Room Air 08/23/25 00:06 General: Healthy appearing, in no acute distress. Able to give a complete and coherent history. Well-nourished well-developed HEENT: Moist mucous membranes, normal sclera with reactive pupils, Neck: No JVD, supple Respiratory: Lungs are clear to auscultation, no wheezing no rales no rhonchi. Full and symmetrical air movement Cardiac: Regular rate and rhythm no murmurs no bruits Abdomen: Soft, nontender, no rebound or guarding, no flank pain Skin: Warm and dry, no rashes Neurologic: Grossly neurologically intact with no obvious asymmetries or abnormalities Extremities: No trauma, well perfused Psych: Cooperative, appropriate insight and affect <Bennett Bean DO - Last Filed: 08/23/25 09:17> Initial Vital Signs Initial Vital Signs: Vital Signs Temperature 97.4 F L 08/23/25 00:06 Pulse Rate 77 08/23/25 00:06 Respiratory Rate 18 08/23/25 00:06 Blood Pressure 134/101 H 08/23/25 00:06 Pulse Oximetry 96 08/23/25 00:06 Oxygen Delivery Method Room Air 08/23/25 00:06 Course <Renetta Fisher MD - Last Filed: 08/23/25 05:27> Orders Ordered: ED Orders 08/23/25 00:15 XR chest 1V Stat EKG-12 Lead Stat 08/23/25 00:17 Complete Blood Count AUTO DIFF Stat Comprehensive Metabolic Panel Stat Lipase Stat Magnesium Stat NT-proBNP (BNP-Adult 18+) Stat PTT Partial Thromboplastin Silvino Stat Prothrombin Time INR Stat Troponin & CK Cardiac Panel Stat 08/23/25 02:43 Trop I [Troponin I] Stat Amiodarone HCl/Dextrose (Nexterone) 360 mg in 200 mls @ 33.333 mls/hr IV NOW ONE; Protocol Stop: 08/23/25 11:14 Last Admin: 08/23/25 05:50 Dose: 33.333 ml/hr, 33.33 mls/hr Documented By: AB Amiodarone HCl/Dextrose (Nexterone) 360 mg in 200 mls @ 16.7 mls/hr IV CONT NEERAJ; Protocol Discontinued Medications Amiodarone HCl (Amiodarone 150 Mg/3 Ml Vial) 300 mg IV NOW ONE Stop: 08/23/25 05:10 Aspirin (Aspirin 81 Mg Chew Tab) 324 mg PO NOW ONE Stop: 08/23/25 00:16 Last Admin: 08/23/25 00:29 Dose: Not Given Documented By: AB Aspirin (Aspirin 81 Mg Chew Tab) 324 mg PO NOW ONE Stop: 08/23/25 01:11 Last Admin: 08/23/25 01:13 Dose: 324 mg Documented By: ANTHONY Furosemide (Furosemide 40 Mg/4 Ml Vial) 60 mg IV NOW ONE Stop: 08/23/25 06:16 Last Admin: 08/23/25 06:31 Dose: 60 mg Documented By: Amiodarone HCl/Dextrose (Nexterone) 150 mg in 100 mls @ 600 mls/hr IV NOW ONE; Protocol Stop: 08/23/25 05:24 Last Infusion: 08/23/25 05:28 Dose: Infused Documented By: Admin: 08/23/25 05:18 Dose: 600 mls/hr Documented By: AB Amiodarone HCl/Dextrose (Nexterone) 360 mg in 200 mls @ 16.7 mls/hr IV CONT NEERAJ; Protocol Stop: 08/23/25 17:29 Furosemide 60 mg/ Sodium (Chloride) 56 mls @ 112 mls/hr IV NOW ONE Stop: 08/23/25 05:18 Last Admin: 08/23/25 06:58 Dose: Not Given Documented By: AB Furosemide 60 mg/ Sodium (Chloride) 56 mls @ 112 mls/hr IV NOW ONE Stop: 08/23/25 06:14 Furosemide 60 mg/ Sodium (Chloride) 56 mls @ 112 mls/hr IV NOW ONE Stop: 08/23/25 05:39 Last Admin: 08/23/25 06:58 Dose: Not Given Documented By: AB Furosemide 60 mg/ Sodium (Chloride) 56 mls @ 112 mls/hr IV NOW ONE Stop: 08/23/25 05:41 Last Admin: 08/23/25 06:58 Dose: Not Given Documented By: AB Sodium Chloride (Normal Saline 0.9%) 50 mls @ 100 mls/hr IV NOW ONE Stop: 08/23/25 06:44 Last Admin: 08/23/25 06:32 Dose: 100 mls/hr Documented By: Vital Signs Vital signs: Vital Signs - 8 hr 08/23/25 01:30 08/23/25 01:30 08/23/25 02:00 Pulse Rate 108 H 93 H Respiratory Rate 24 23 Blood Pressure 148/101 H Pulse Oximetry 94 94 Oxygen Delivery Method 08/23/25 02:00 08/23/25 02:30 08/23/25 02:30 Pulse Rate 94 H Respiratory Rate 17 Blood Pressure 147/108 H 163/119 H Pulse Oximetry 94 Oxygen Delivery Method 08/23/25 03:00 08/23/25 03:00 08/23/25 03:30 Pulse Rate 105 H 81 Respiratory Rate 13 11 L Blood Pressure 165/116 H Pulse Oximetry 95 94 Oxygen Delivery Method 08/23/25 03:36 08/23/25 03:36 08/23/25 04:00 Pulse Rate 105 H 103 H Respiratory Rate 13 15 Blood Pressure 165/92 H Pulse Oximetry 96 94 Oxygen Delivery Method 08/23/25 04:00 08/23/25 04:05 08/23/25 04:10 Pulse Rate 94 H 103 H Respiratory Rate 24 21 Blood Pressure 156/99 H Pulse Oximetry 96 95 Oxygen Delivery Method 08/23/25 04:15 08/23/25 04:20 08/23/25 04:25 Pulse Rate 107 H 92 H 99 H Respiratory Rate 17 24 23 Blood Pressure Pulse Oximetry 95 95 95 Oxygen Delivery Method 08/23/25 04:30 08/23/25 04:30 08/23/25 04:42 Pulse Rate 85 117 H Respiratory Rate 16 25 H Blood Pressure 147/107 H Pulse Oximetry 95 97 Oxygen Delivery Method 08/23/25 04:43 08/23/25 04:43 08/23/25 04:45 Pulse Rate 106 H 103 H Respiratory Rate 18 16 Blood Pressure 170/124 H Pulse Oximetry 96 96 Oxygen Delivery Method 08/23/25 04:50 08/23/25 04:55 08/23/25 05:00 Pulse Rate 98 H 97 H 106 H Respiratory Rate 16 23 14 Blood Pressure Pulse Oximetry 95 95 94 Oxygen Delivery Method 08/23/25 05:04 08/23/25 05:04 08/23/25 05:05 Pulse Rate 114 H 116 H Respiratory Rate 16 17 Blood Pressure 175/114 H Pulse Oximetry 95 94 Oxygen Delivery Method 08/23/25 05:08 08/23/25 05:08 08/23/25 05:10 Pulse Rate 72 110 H Respiratory Rate 12 16 Blood Pressure 175/126 H Pulse Oximetry 96 96 Oxygen Delivery Method 08/23/25 05:15 08/23/25 05:30 08/23/25 05:30 Pulse Rate 74 63 Respiratory Rate 18 7 L Blood Pressure 155/123 H Pulse Oximetry 95 94 Oxygen Delivery Method Room Air 08/23/25 06:00 08/23/25 06:00 08/23/25 06:30 Pulse Rate 65 64 Respiratory Rate 13 14 Blood Pressure 151/97 H Pulse Oximetry 94 93 Oxygen Delivery Method Room Air 08/23/25 06:30 08/23/25 07:00 08/23/25 07:00 Pulse Rate 63 Respiratory Rate 23 Blood Pressure 161/89 H 154/94 H Pulse Oximetry 94 Oxygen Delivery Method 08/23/25 07:30 08/23/25 07:30 08/23/25 08:00 Pulse Rate 68 69 Respiratory Rate 20 23 Blood Pressure 168/110 H Pulse Oximetry 95 96 Oxygen Delivery Method 08/23/25 08:01 08/23/25 08:01 Pulse Rate 65 Respiratory Rate 21 Blood Pressure 155/92 H Pulse Oximetry 96 Oxygen Delivery Method <Bennett Bean, DO - Last Filed: 08/23/25 09:17> Orders Ordered: ED Orders 08/23/25 00:15 XR chest 1V Stat EKG-12 Lead Stat 08/23/25 00:17 Complete Blood Count AUTO DIFF Stat Comprehensive Metabolic Panel Stat Lipase Stat Magnesium Stat NT-proBNP (BNP-Adult 18+) Stat PTT Partial Thromboplastin Silvino Stat Prothrombin Time INR Stat Troponin & CK Cardiac Panel Stat 08/23/25 02:43 Trop I [Troponin I] Stat Amiodarone HCl/Dextrose (Nexterone) 360 mg in 200 mls @ 33.333 mls/hr IV NOW ONE; Protocol Stop: 08/23/25 11:14 Last Admin: 08/23/25 05:50 Dose: 33.333 ml/hr, 33.33 mls/hr Documented By: AB Amiodarone HCl/Dextrose (Nexterone) 360 mg in 200 mls @ 16.7 mls/hr IV CONT NEERAJ; Protocol Discontinued Medications Amiodarone HCl (Amiodarone 150 Mg/3 Ml Vial) 300 mg IV NOW ONE Stop: 08/23/25 05:10 Aspirin (Aspirin 81 Mg Chew Tab) 324 mg PO NOW ONE Stop: 08/23/25 00:16 Last Admin: 08/23/25 00:29 Dose: Not Given Documented By: AB Aspirin (Aspirin 81 Mg Chew Tab) 324 mg PO NOW ONE Stop: 08/23/25 01:11 Last Admin: 08/23/25 01:13 Dose: 324 mg Documented By: ANTHONY Furosemide (Furosemide 40 Mg/4 Ml Vial) 60 mg IV NOW ONE Stop: 08/23/25 06:16 Last Admin: 08/23/25 06:31 Dose: 60 mg Documented By: Amiodarone HCl/Dextrose (Nexterone) 150 mg in 100 mls @ 600 mls/hr IV NOW ONE; Protocol Stop: 08/23/25 05:24 Last Infusion: 08/23/25 05:28 Dose: Infused Documented By: Admin: 08/23/25 05:18 Dose: 600 mls/hr Documented By: AB Amiodarone HCl/Dextrose (Nexterone) 360 mg in 200 mls @ 16.7 mls/hr IV CONT NEERAJ; Protocol Stop: 08/23/25 17:29 Furosemide 60 mg/ Sodium (Chloride) 56 mls @ 112 mls/hr IV NOW ONE Stop: 08/23/25 05:18 Last Admin: 08/23/25 06:58 Dose: Not Given Documented By: AB Furosemide 60 mg/ Sodium (Chloride) 56 mls @ 112 mls/hr IV NOW ONE Stop: 08/23/25 06:14 Furosemide 60 mg/ Sodium (Chloride) 56 mls @ 112 mls/hr IV NOW ONE Stop: 08/23/25 05:39 Last Admin: 08/23/25 06:58 Dose: Not Given Documented By: AB Furosemide 60 mg/ Sodium (Chloride) 56 mls @ 112 mls/hr IV NOW ONE Stop: 08/23/25 05:41 Last Admin: 08/23/25 06:58 Dose: Not Given Documented By: AB Sodium Chloride (Normal Saline 0.9%) 50 mls @ 100 mls/hr IV NOW ONE Stop: 08/23/25 06:44 Last Admin: 08/23/25 06:32 Dose: 100 mls/hr Documented By: Vital Signs Vital signs: Vital Signs - 8 hr 08/23/25 01:30 08/23/25 01:30 08/23/25 02:00 Pulse Rate 108 H 93 H Respiratory Rate 24 23 Blood Pressure 148/101 H Pulse Oximetry 94 94 Oxygen Delivery Method 08/23/25 02:00 08/23/25 02:30 08/23/25 02:30 Pulse Rate 94 H Respiratory Rate 17 Blood Pressure 147/108 H 163/119 H Pulse Oximetry 94 Oxygen Delivery Method 08/23/25 03:00 08/23/25 03:00 08/23/25 03:30 Pulse Rate 105 H 81 Respiratory Rate 13 11 L Blood Pressure 165/116 H Pulse Oximetry 95 94 Oxygen Delivery Method 08/23/25 03:36 08/23/25 03:36 08/23/25 04:00 Pulse Rate 105 H 103 H Respiratory Rate 13 15 Blood Pressure 165/92 H Pulse Oximetry 96 94 Oxygen Delivery Method 08/23/25 04:00 08/23/25 04:05 08/23/25 04:10 Pulse Rate 94 H 103 H Respiratory Rate 24 21 Blood Pressure 156/99 H Pulse Oximetry 96 95 Oxygen Delivery Method 08/23/25 04:15 08/23/25 04:20 08/23/25 04:25 Pulse Rate 107 H 92 H 99 H Respiratory Rate 17 24 23 Blood Pressure Pulse Oximetry 95 95 95 Oxygen Delivery Method 08/23/25 04:30 08/23/25 04:30 08/23/25 04:42 Pulse Rate 85 117 H Respiratory Rate 16 25 H Blood Pressure 147/107 H Pulse Oximetry 95 97 Oxygen Delivery Method 08/23/25 04:43 08/23/25 04:43 08/23/25 04:45 Pulse Rate 106 H 103 H Respiratory Rate 18 16 Blood Pressure 170/124 H Pulse Oximetry 96 96 Oxygen Delivery Method 08/23/25 04:50 08/23/25 04:55 08/23/25 05:00 Pulse Rate 98 H 97 H 106 H Respiratory Rate 16 23 14 Blood Pressure Pulse Oximetry 95 95 94 Oxygen Delivery Method 08/23/25 05:04 08/23/25 05:04 08/23/25 05:05 Pulse Rate 114 H 116 H Respiratory Rate 16 17 Blood Pressure 175/114 H Pulse Oximetry 95 94 Oxygen Delivery Method 08/23/25 05:08 08/23/25 05:08 08/23/25 05:10 Pulse Rate 72 110 H Respiratory Rate 12 16 Blood Pressure 175/126 H Pulse Oximetry 96 96 Oxygen Delivery Method 08/23/25 05:15 08/23/25 05:30 08/23/25 05:30 Pulse Rate 74 63 Respiratory Rate 18 7 L Blood Pressure 155/123 H Pulse Oximetry 95 94 Oxygen Delivery Method Room Air 08/23/25 06:00 08/23/25 06:00 08/23/25 06:30 Pulse Rate 65 64 Respiratory Rate 13 14 Blood Pressure 151/97 H Pulse Oximetry 94 93 Oxygen Delivery Method Room Air 08/23/25 06:30 08/23/25 07:00 08/23/25 07:00 Pulse Rate 63 Respiratory Rate 23 Blood Pressure 161/89 H 154/94 H Pulse Oximetry 94 Oxygen Delivery Method 08/23/25 07:30 08/23/25 07:30 08/23/25 08:00 Pulse Rate 68 69 Respiratory Rate 20 23 Blood Pressure 168/110 H Pulse Oximetry 95 96 Oxygen Delivery Method 08/23/25 08:01 08/23/25 08:01 Pulse Rate 65 Respiratory Rate 21 Blood Pressure 155/92 H Pulse Oximetry 96 Oxygen Delivery Method MDM - Chest Pain <Renetta Fisher MD - Last Filed: 08/23/25 05:27> Lab Data 08/23/25 00:17 08/23/25 00:17 Labs: Lab Results 08/23/25 08/23/25 Range/Units 00:17 02:43 WBC 6.3 (4.5-11.0) X10^3/uL RBC 5.07 (4.5-5.9) X10^6/uL Hgb 15.3 (13.5-17.5) g/dL Hct 45.0 (41-53) % MCV 88.8 (80-100) fL MCH 30.2 (26-34) PG MCHC 34.0 (30-36) % RDW 14.9 H (11.6-14.8) % Plt Count 136 L (150-400) X10^3/uL Neut % (Auto) 60.7 (50-75) % Lymph % (Auto) 28.4 (25-40) % [place] % (Auto) 8.1 (3-14) % Eos % (Auto) 2.0 (2-4) % Baso % (Auto) 0.8 (0-2) % Neut # (Auto) 3800 (8921-0615) /uL Lymph # (Auto) 1800 (8215-8082) /uL [place] # (Auto) 500 (0-900) /uL Eos # (Auto) 100 (0-450) /uL Baso # (Auto) 0 (0-100) /uL PT 15.5 H (9.4-12.5) SECONDS INR 1.4 H (0.9-1.3) APTT 37 H (25.1-36.5) SECONDS Sodium 142 (137-145) mmol/L Potassium 3.9 (3.4-5.1) mmol/L Chloride 108 H (98-107) mmol/L Carbon Dioxide 26 (22-32) mmol/L BUN 17 (9-20) mg/dL Creatinine 1.06 (0.66-1.25) mg/dL Estimated GFR > 60 (>60) mL/min BUN/Creatinine Ratio 16.0 (6-22) Glucose 102 H (70-99) mg/dL Calcium 9.1 (8.4-10.2) mg/dL Magnesium 1.8 (1.6-2.3) mg/dL Total Bilirubin 1.0 (0.2-1.3) mg/dL AST 38 (17-59) IU/L ALT 39 (<50) IU/L Alkaline Phosphatase 60 (38-126) U/L Total Creatine Kinase 77 (55-170) U/L Troponin I < 0.012 < 0.012 (0.01-0.034) ng/mL NT-Pro-B Natriuret Pep 1260 H (<125) pg/mL Total Protein 7.7 (6.3-8.2) g/dL Albumin 4.5 (3.5-5.0) g/dL Globulin 3.2 (1.7-4.1) g/dL Albumin/Globulin Ratio 1.4 (1.0-2.8) Lipase 81 (23-300) U/L MDM Narrative Medical decision making narrative: CC: Left-sided chest pain along with significant water weight increase in the last 5 days Complicating co-morbidities: Chronic atrial fibrillation post ablation, hyperlipidemia, recent discussions regarding chlorthalidone dosing and whether this was exacerbating his gout currently anticoagulated, generalized anxiety disorder, hypothyroidism, patient does have a pacemaker Data collected from: patient Medical records reviewed: Primary care notes from August 11 are reviewed Most recent echocardiogram appears to be December of 2018 showing left ventricle with [id number] dilatation. Ejection fraction estimated at 55% no obvious focal wall motion abnormalities appreciated a severely dilated atria bilaterally. Differential considered: Acute coronary syndrome, rhythm abnormality, shingles, congestive heart failure, Exam documented above, pertinent findings include: Patient is currently pain-free, no skin rashes, lungs are clear abdomen is benign Lab Test results independently reviewed as above. Pertinent findings: CBC is unremarkable Chemistries are reassuring. First and 2nd troponins are undetectable ProBNP is elevated at 1260 Independently reviewed EKG: Atrial fibrillation at a rate of 84 nonspecific STT wave changes without acute ischemia Imaging studies independently reviewed: Cardiomegaly, no obvious congestive heart failure Consultations: Treatments: Aspirin multiple episodes of ventricular tachycardia, sustained for greater than a minute, recurring but asymptomatic, he is loaded on 150 mg of amiodarone and continuing loading dose is ordered Re-evaluations: 510am patient is having recurrent episodes of sustained V tach. he is asymptomatic with this. Discussion: 75-year-old gentleman who comes in complaining of left-sided chest pain this evening lasting approximately 30 minutes. He was seen at [facility] with a nuclear medicine stress test done in October that was interpreted as positive, follow up discussion with Cardiology according to notes indicates the patient declined cardiac catheterization. Patient clearly does not have the same recollection and does not understand that cardiac catheterization was recommended. His primary care physician is Dr. Laurent. They have been working on fluid retention and he has been on and off chlorthalidone as well as Lasix and torsemide with the Lasix with concerns that the diuretics were exacerbating his gout. Patient does appear to be having an exacerbation of his congestive heart failure and does need diuresis. Maybe that he has been having more rhythm abnormalities to cause the worsening congestive failure. The fact that he has been complaining more palpitations and chest pain lasting for 30 minutes last night is concerning. The documented recurrent episodes of ventricular tachycardia that he is not sensing are equally concerning. At this point I believe hospitalization at a facility with cardiac catheterization lab capacity is going to be appropriate. [facility] currently is on treat and transfer. Will see if [facility] has bed capacity <Bennett Bean, DO - Last Filed: 08/23/25 09:17> Lab Data Labs: Lab Results 08/23/25 08/23/25 Range/Units 00:17 02:43 WBC 6.3 (4.5-11.0) X10^3/uL RBC 5.07 (4.5-5.9) X10^6/uL Hgb 15.3 (13.5-17.5) g/dL Hct 45.0 (41-53) % MCV 88.8 (80-100) fL MCH 30.2 (26-34) PG MCHC 34.0 (30-36) % RDW 14.9 H (11.6-14.8) % Plt Count 136 L (150-400) X10^3/uL Neut % (Auto) 60.7 (50-75) % Lymph % (Auto) 28.4 (25-40) % [place] % (Auto) 8.1 (3-14) % Eos % (Auto) 2.0 (2-4) % Baso % (Auto) 0.8 (0-2) % Neut # (Auto) 3800 (8220-9288) /uL Lymph # (Auto) 1800 (6596-8600) /uL [place] # (Auto) 500 (0-900) /uL Eos # (Auto) 100 (0-450) /uL Baso # (Auto) 0 (0-100) /uL PT 15.5 H (9.4-12.5) SECONDS INR 1.4 H (0.9-1.3) APTT 37 H (25.1-36.5) SECONDS Sodium 142 (137-145) mmol/L Potassium 3.9 (3.4-5.1) mmol/L Chloride 108 H (98-107) mmol/L Carbon Dioxide 26 (22-32) mmol/L BUN 17 (9-20) mg/dL Creatinine 1.06 (0.66-1.25) mg/dL Estimated GFR > 60 (>60) mL/min BUN/Creatinine Ratio 16.0 (6-22) Glucose 102 H (70-99) mg/dL Calcium 9.1 (8.4-10.2) mg/dL Magnesium 1.8 (1.6-2.3) mg/dL Total Bilirubin 1.0 (0.2-1.3) mg/dL AST 38 (17-59) IU/L ALT 39 (<50) IU/L Alkaline Phosphatase 60 (38-126) U/L Total Creatine Kinase 77 (55-170) U/L Troponin I < 0.012 < 0.012 (0.01-0.034) ng/mL NT-Pro-B Natriuret Pep 1260 H (<125) pg/mL Total Protein 7.7 (6.3-8.2) g/dL Albumin 4.5 (3.5-5.0) g/dL Globulin 3.2 (1.7-4.1) g/dL Albumin/Globulin Ratio 1.4 (1.0-2.8) Lipase 81 (23-300) U/L MDM Narrative Medical decision making narrative: CC: Left-sided chest pain along with significant water weight increase in the last 5 days Complicating co-morbidities: Chronic atrial fibrillation post ablation, hyperlipidemia, recent discussions regarding chlorthalidone dosing and whether this was exacerbating his gout currently anticoagulated, generalized anxiety disorder, hypothyroidism, patient does have a pacemaker Data collected from: patient Medical records reviewed: Primary care notes from August 11 are reviewed Most recent echocardiogram appears to be December of 2018 showing left ventricle with [id number] dilatation. Ejection fraction estimated at 55% no obvious focal wall motion abnormalities appreciated a severely dilated atria bilaterally. Differential considered: Acute coronary syndrome, rhythm abnormality, shingles, congestive heart failure, Exam documented above, pertinent findings include: Patient is currently pain-free, no skin rashes, lungs are clear abdomen is benign Lab Test results independently reviewed as above. Pertinent findings: CBC is unremarkable Chemistries are reassuring. First and 2nd troponins are undetectable ProBNP is elevated at 1260 Independently reviewed EKG: Atrial fibrillation at a rate of 84 nonspecific STT wave changes without acute ischemia Imaging studies independently reviewed: Cardiomegaly, no obvious congestive heart failure Consultations: Treatments: Aspirin multiple episodes of ventricular tachycardia, sustained for greater than a minute, recurring but asymptomatic, he is loaded on 150 mg of amiodarone and continuing loading dose is ordered Re-evaluations: 510am patient is having recurrent episodes of sustained V tach. he is asymptomatic with this. Discussion: 75-year-old gentleman who comes in complaining of left-sided chest pain this evening lasting approximately 30 minutes. He was seen at [facility] with a nuclear medicine stress test done in October that was interpreted as positive, follow up discussion with Cardiology according to notes indicates the patient declined cardiac catheterization. Patient clearly does not have the same recollection and does not understand that cardiac catheterization was recommended. His primary care physician is Dr. Laurent. They have been working on fluid retention and he has been on and off chlorthalidone as well as Lasix and torsemide with the Lasix with concerns that the diuretics were exacerbating his gout. Patient does appear to be having an exacerbation of his congestive heart failure and does need diuresis. Maybe that he has been having more rhythm abnormalities to cause the worsening congestive failure. The fact that he has been complaining more palpitations and chest pain lasting for 30 minutes last night is concerning. The documented recurrent episodes of ventricular tachycardia that he is not sensing are equally concerning. At this point I believe hospitalization at a facility with cardiac catheterization lab capacity is going to be appropriate. [facility] currently is on treat and transfer. Will see if [facility] has bed capacity Case d/w Maddy HUANG working with Dr.Yee Lizy KAMARA accepted pt for transfer and to have hospitalist admit and bed availability at [facility] Dr.Kevin Davies hospitalist has accepted patient for transfer. Discharge Plan Departure Patient Disposition: [facility] Clinical Impression: Sustained ventricular tachycardia, Chronic a-fib Chest pain Qualifiers: Chest pain type: unspecified Qualified Code(s): R07.9 - Chest pain, unspecified Acute CHF (congestive heart failure) Qualifiers: Heart failure type: unspecified Qualified Code(s): I50.9 - Heart failure, unspecified Prescriptions: No Action multivitamin [Multiple Vitamins] 1 EACH tablet 1 tab PO QDAY Qty: 0 (DME) Respironics Dreamstation BIPAP Qty: 1 Dose Instruction: As directed Patient Comments: Pressure: IPAP 22 EPAP 14 DME: [facility] Rx Instructions: As directed colchicine 0.6 mg tablet 0.6 mg PO 4XD PRN (Reason: for gout pain) Qty: 30 3RF (DME) facial mask Misc See Rx Instructions .Route Qty: 1 0RF Rx Instructions: As directed coenzyme Q10 1 cap PO DAILY potassium chloride 20 mEq tablet,ER particles/crystals 20 meq PO BID Qty: 180 3RF Eliquis 5 mg tablet 5 mg PO BID Qty: 180 3RF (DME) Parking Permit... See Rx Instructions .Route .MEDSUPPLY Qty: 1 0RF Rx Instructions: As directed propranolol 80 mg capsule,extended release 24 hr 80 mg PO DAILY losartan 50 mg tablet 50 mg PO DAILY Qty: 90 3RF allopurinol 300 mg tablet 300 mg PO DAILY Qty: 90 3RF Referrals: Jadon Laurent MD [Primary Care Provider, Internal Medicine]
[2025-08-23 01:04] LABS: Alanine Aminotransferase 39 IU/L (<50); Albumin 4.5 g/dL (3.5-5.0); Albumin Globulin Ratio 1.4 (1.0-2.8); Alkaline Phosphatase 60 U/L (38-126); Blood Urea Nitrogen 17 mg/dL (9-20); Calcium 9.1 mg/dL (8.4-10.2); Carbon Dioxide 26 mmol/L (22-32); Chloride 108 mmol/L (98-107); Creatine Kinase 77 U/L (55-170); Estimated Glomerular Filt Rate > 60 mL/min (>60); Globulin 3.2 g/dL (1.7-4.1); Glucose 102 mg/dL (70-99); HEMOLYSIS < 15 (0-50); Lipase 81 U/L (23-300); Magnesium 1.8 mg/dL (1.6-2.3); Potassium 3.9 mmol/L (3.4-5.1); Sodium 142 mmol/L (137-145); Total Protein 7.7 g/dL (6.3-8.2)
[2025-08-23] MEDS: ASPIRIN 81 MG CHEW TAB 324 MG PO (01:13)
[2025-08-23 01:16] LABS: NT-proBNP (BNP-Adult 18+) 1260 pg/mL (<125); Troponin I < 0.012 ng/mL (0.01-0.034)
[2025-08-23 03:11] LABS: Troponin I < 0.012 ng/mL (0.01-0.034)
[2025-08-23] MEDS: AMIODARONE 150 MG/100 ML PIGGYBACK 600 MG IV (05:18)
[2025-08-23] MEDS: AMIODARONE 360 MG/200 ML PIGGYBACK 33.33 MG IV (05:50)
[2025-08-23] MEDS: FUROSEMIDE 40 MG/4 ML VIAL 60 MG IV (06:31)
[2025-08-23] MEDS: SODIUM CHLORIDE 0.9% 50 ML 100 ML IV (06:32)
--- NOTE | 2025-08-23 08:21 | PC.NURSE ---
Pt denies chest pain,pt states I'm feeling great.
--- NOTE | 2025-08-23 10:40 | PC.NURSE ---
Patient's notified the RN that the pt does not want to go to [place] since his father recently .
[2025-08-23] MEDS: AMIODARONE 360 MG/200 ML PIGGYBACK 16.7 MG IV (11:37)
--- NOTE | 2025-08-23 11:50 | EKG_ITS ---
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
--- NOTE | 2025-08-23 11:54 | EKG_ITS ---
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
== END 2025-08-23 14:20 | disposition short-term general hospital (02) ==
PROVIDERS: Emergency Medicine; Emergency Provider Family Medicine; PCP Internal Medicine
DX: I47.20 Ventricular tachycardia, unspecified (principal); I11.0 Hypertensive heart disease with heart failure; I50.9 Heart failure, unspecified; I48.20 Chronic atrial fibrillation, unspecified
CPT/HCPCS: 36415; 71045; 80053; 82550; 83690; 83735; 83880; 84484; 85025; 85610; 85730; 93005; 96365; 96366; 96375; 99284; J0282; J1938